=== PATIENT | female | born 1935 | race Caucasian/White ===

== ENCOUNTER 2016-10-28 12:46 | Outpatient (CLI) | payer MEDICARE, OTHER ==
[~2016-10-28 12:46] MED LIST: ACIPHEX20 MG PO; ACULAR 5 ML5 ML OD; ADVIL 200MG TA200 MG PO; ADVIL200 MG PO; AMOXICILLIN 50500 MG PO; AMOXICILLIN/CLA1 TA1 PO; AMOXICILLIN875 MG PO; ANTI-DIARRHEAL2 MG PO; APRESOLINE 25MG25 MG PO; ARAVA 20MG TABL20 MG PO; ARAVA10 MG PO; ARAVA20 MG PO; ASPIR-LOW81 MG PO; ASPIRIN 32325 MG/TA1 PO; ASPIRIN 32325 MG/TAB PO; ASPIRIN 81M81 MG/TA2 PO; ASTELIN INH; ASTELIN NASAL S34 ML NS; ASTELIN137 MCG/AC NS; AZULFIDINE PO; BACTRIM 400 MG-1 TAB PO; BRILINTA90 MG PO; BYSTOLIC10 MG PO; CALCIUM 600 W/V1 TAB PO; CALCIUM 6001 TAB PO; CALCIUM 600MG+D1 TAB PO; CALCIUM CARB W/1 TA1 PO; CALCIUM CARBONATE PO; CALMOSEPTINE1 OIN TP; CALTRATE 600600 MG PO; CALTRATE-600 W600 MG PO; CARAFATE 1GM1 G PO; CATAPRES 0.1MG0.1 MG PO; CECLOR 250MG250 MG PO; CEFACLOR250 MG PO; CEFPODOXIME PR100 MG PO; CEFTIN 250250 MG/TAB PO; CHOLECALCIFEROL PO; CIPRO 500MG TA500 MG PO; CLOTRIMAZOLE TR10 MG MM; CRANBERRY 4200 MG PO; CRANBERRY CONCE PO; CRANBERRY1 CAP PO; CRANBERRY450 MG PO; CYMBALTA 30MG30 MG PO; DARVOCET N; DARVOCET N 101 UDTAB PO; DIGOXIN0.25 MG PO; DIOVAN HCT PO; DIOVAN40 MG PO; DULCOLAX TAB5 MG PO; FISH OIL CONC1000 MG PO; FLAGYL 250250 MG/TAB PO; FLAGYL500 MG PO; FLONASE NASAL S16 GM NS; FLONASE0.05 MG/AC NS; FLOVENT DI50 MCG/Act IH; FLOXIN 5 ML5 ML OD; FOLIC ACID; FOLIC ACID 11 MG/TA1 PO; FOLIC ACID 40400 MCG PO; FOLIC ACID1 MG PO; IMDUR 30MG30 MG/TAB PO; IMDUR 60MG60 MG/TAB PO; ISMO 20MG20 MG; ISMO 20MG20 MG PO; ISORDIL 20MG20 M1 PO; ISOSORBIDE MONO20 MG PO; JANUVIA 100MG100 MG PO; JUNEL 1.5/30 301 TAB; K-DUR 2020 MEQ PO; KRILL OIL 300 MG PO; LASIX 40MG TABL40 MG PO; LASIX 80MG TABL80 MG PO; LASIX40 MG PO; LEVAQUIN 2250 MG/TAB PO; LEVAQUIN 5500 MG/TA1; LEVAQUIN 5500 MG/TA1 PO; LEVAQUIN 750MG750 M1 PO; LEVAQUIN 750MG750 MG PO; LIPITOR 80MG80 MG PO; LIPITOR40 MG PO; LIPITOR80 MG PO; MAALOX ADVANCE148 ML PO; MAALOX1 TAB PO; MELATONIN5 M1 PO; MELATONIN5 M1 SL; MELATONIN5 M2 PO; MELATONIN5 MG PO; METHOTREXA2.5 MG/TAB IM; METHOTREXA2.5 MG/TAB PO; METHOTREXA50 MG/2 ML SC; METHOTREXATE SO20 MG SQ; METHOTREXATE SODIUM SQ; METHOTREXATE25 MG/M1 SQ; METRONIDAZOLE500 MG PO; MONOKET10 MG PO; MONOKET20 MG PO; MUCINEX 60600 MG/TA1 PO; MUCINEX 60600 MG/TAB PO; MUCINEX D1 TER PO; MUCINEX DM 30 M1 TER PO; MULTI VITAMINS1 TAB PO; MULTIVITAMIN FO1 CAP PO; MYBETRIQ PO; MYRBETR25MG PO; MYRBETR50MG PO; Methotrexate IM; NEXIUM 40MG40 MG PO; NITROSTAT0.4 MG/TAB SL; NORMODYNE200 MG PO; NORMODYNE300 MG PO; NORVASC 10MG10 MG PO; OTREXUP 1212.5 MG/0. SQ; OTREXUP10 MG/0.4 IJ; PERCOCET 325 MG1 TA2 PO; PLAVIX 75MG TAB75 MG PO; PRED FORTE 1 ML1 ML OU; PREDNISONE 5MG5 MG PO; PREDNISONE20 MG PO; PRINIVIL20 MG PO; PRINIVIL40 MG PO; PROAIR HFA0.09 MG/AC IH; PROBIOTIC PO; PROLOPRIM100 MG PO; PROPOXYPHENE1 UDTAB PO; RANEXA1000 MG PO; RITE AID KRILL500 MG; RITE AID KRILL500 MG SL; RYBIX ODT50 MG PO; SINGULAIR 110 MG/TAB PO; SINGULAIR10 MG PO; ST. JOSEPH81 M2 PO; STOOL SOFTENER100 M2 PO; TESSALON PERLE200 MG PO; TOPROL XL50 MG PO; TRANDATE300 MG PO; TRILIPIX 135MG PO; TRIMPEX100 MG PO; TYLENOL 500MG500 MG PO; TYLENOL EXTRA500 M1 PO; ULTRAM 50MG TAB50 MG PO; ULTRAM ER100 MG PO; VENTOLIN0.09 MG IH; VOLTAREN GEL 1%1 TU TP; ZANTAC 150MG T150 MG PO; ZESTRIL 20MG TA20 MG PO; ZESTRIL40 MG PO; ZOFRAN 4MG T4 MG/TAB PO; ZOFRAN ODT4 MG PO; [UNRECOGNIZED DRUG - OTHER] PO; [UNRECOGNIZED DRUG - OTHER] PO; [UNRECOGNIZED DRUG - OTHER] PO; [UNRECOGNIZED DRUG - OTHER] PO; [UNRECOGNIZED DRUG - OTHER] PO; [UNRECOGNIZED DRUG - REMARK]
[2016-10-28 13:10] VITALS: BP 98/69; PULSE 92; TEMP 98.2
[2016-10-28 13:14] LABS: BASO # 0.1 (0.0-0.2); BASO % 0.5 % (0.0-2.0); EOS # 0.1 (0.0-0.7); EOS % 0.7 % (0-4.0); GRAN # 9.7 (1.4-6.5); GRAN % 79.9 % (42.2-75.2); HEMATOCRIT 39.1 % (37.0-47.0); HEMOGLOBIN 13.2 g/dl (12.5-16.0); LYMPH # 1.1 (1.2-3.4); LYMPH % 8.8 % (20.0-51.0); MEAN CELL VOLUME 88 fl (80.0-100.0); MEAN CORPUSCULAR HEMOGLOBIN 30 pg (27.0-31.0); MEAN CORPUSCULAR HGB CONC 34 g/dl (33.0-37.0); MEAN PLATELET VOLUME 9.9 fl (7.4-10.4); MONO # 1.1 (0.1-0.6); MONO % 9.1 % (1.7-9.3); PLATELET COUNT 227 K/mm3 (130-400); RED BLOOD COUNT 4.46 M/mm3 (4.10-5.30); REDCELL DISTRIBUTION WIDTH-CV 14.4 % (11.5-14.5); WHITE BLOOD COUNT 12.1 K/mm3 (4.8-10.8)
[2016-10-28 13:37] LABS: ADJUSTED CALCIUM 9.7 mg/dL (8.4-10.2); CALCIUM 9.7 mg/dL (8.4-10.2); CREATININE, serum 1.34 mg/dL (0.52-1.25); POTASSIUM 3.9 mmol/L (3.4-5.0); TOTAL PROTEIN 6.8 gm/dL (6.4-8.2)
[2016-10-28] MEDS ORDERED: TYLENOL 500MG500 MG PO (14:46)
[2016-10-28] MEDS ORDERED: FLONASEALLERGY NS (14:48)
[2016-10-28] MEDS ORDERED: TUMS500 MG PO (14:48)
[2016-10-28] MEDS ORDERED: FOLIC ACID 11 MG/TA1 PO (14:49)
[2016-10-28] MEDS ORDERED: MELATONIN5 M1 SL (14:52)
[2016-10-28] MEDS ORDERED: FLAGYL500 MG PO (14:52)
[2016-10-28] MEDS ORDERED: NITROSTAT0.4 MG/TAB SL (14:54)
[2016-10-28 15:54] VITALS: BP 124/67; PULSE 61; TEMP 97.5
[2016-10-28 16:35] LABS: PH 5 (5-8); SQUAMOUS EPITHELIAL 0-2 /hpf; URINE APPEARANCE Hazy; URINE BACTERIA Rare /hpf; URINE BILIRUBIN Negative (NEGATIVE); URINE BLOOD Negative (NEGATIVE); URINE COLOR Yellow; URINE GLUCOSE Negative (NEGATIVE); URINE KETONE Negative (NEGATIVE); URINE RBC 0-2 /hpf; URINE UROBILINOGEN Negative (NEGATIVE)
[2017-06-05] MEDS ORDERED: ZYRTEC5 MG PO (10:34)
[2017-06-05] MEDS ORDERED: LASIX 40MG TABL40 MG PO (10:35)
[2017-06-05] MEDS ORDERED: APRESOLINE 25MG25 MG PO (10:36)
[2017-06-05] MEDS ORDERED: PRINIVIL40 MG PO (10:39)
[2017-06-05] MEDS ORDERED: MYRBETR50MG PO (10:42)
[2017-06-05] MEDS ORDERED: ULTRAM ER100 MG PO (11:01)
[2017-06-05] MEDS ORDERED: ULTRAM 50MG TAB50 MG PO (11:01)
== END 2016-10-28 16:58 | disposition home or self-care (01) ==
LOC: EUO 12:46
PROVIDERS: Internal Medicine
DX: E86.0 Dehydration (principal); Z45.2 Encounter for adjustment and management of vascular access device
CPT/HCPCS: J1644; J2405; J3480; J7040

== ENCOUNTER 2016-11-02 14:23 | Emergency (ER) | payer MEDICARE, OTHER ==
[~2016-11-02] VITALS: Ht 154.9 cm; Wt 84.1 kg
[~2016-11-02 14:23] MED LIST changes: +FLONASEALLERGY NS; +TUMS500 MG PO
[2016-11-02 14:43] VITALS: TEMP 97.3
[2016-11-02 15:51] LABS: ADJUSTED CALCIUM 9.8 mg/dL (8.4-10.2); ALBUMIN 3.2 gm/dL (3.5-5.0); BASO # 0.1 (0.0-0.2); BASO % 0.8 % (0.0-2.0); BILIRUBIN,TOTAL 0.7 mg/dL (0.0-1.0); CALCIUM 9.2 mg/dL (8.4-10.2); CREATININE, serum 0.81 mg/dL (0.52-1.25); EOS # 0.1 (0.0-0.7); EOS % 1.4 % (0-4.0); GRAN # 7.3 (1.4-6.5); LYMPH # 0.8 (1.2-3.4); LYMPH % 8.8 % (20.0-51.0); MEAN CELL VOLUME 89 fl (80.0-100.0); MEAN CORPUSCULAR HEMOGLOBIN 30 pg (27.0-31.0); MEAN CORPUSCULAR HGB CONC 34 g/dl (33.0-37.0); MEAN PLATELET VOLUME 10.5 fl (7.4-10.4); MONO # 0.6 (0.1-0.6); MONO % 6.2 % (1.7-9.3); PLATELET COUNT 138 K/mm3 (130-400); POTASSIUM 4.3 mmol/L (3.4-5.0); REDCELL DISTRIBUTION WIDTH-CV 14.5 % (11.5-14.5); WHITE BLOOD COUNT 8.9 K/mm3 (4.8-10.8)
[2016-11-02 15:53] LABS: HEMATOCRIT 35.4 % (37.0-47.0)
[2016-11-02 17:14] LABS: INR 1.3 (0.8-3.0); PROTHROMBIN TIME 14.4 SECONDS (9.7-12.8)
[2016-11-02 17:29] LABS: PH 5 (5-8); SQUAMOUS EPITHELIAL 0-2 /hpf; URINE APPEARANCE Clear; URINE BACTERIA None Seen /hpf; URINE BILIRUBIN Negative (NEGATIVE); URINE BLOOD Negative (NEGATIVE); URINE COLOR Amber; URINE GLUCOSE Negative (NEGATIVE); URINE KETONE Negative (NEGATIVE); URINE RBC 0-2 /hpf; URINE UROBILINOGEN Negative (NEGATIVE)
[2016-11-02 17:31] LABS: TROPONIN-I 0.013 ng/mL (0.000-0.034)
[2016-11-02] MEDS ORDERED: ANTIVERT 12.512.5 MG PO (20:16)
[2016-11-02] MEDS ORDERED: LASIX 20MG TABL20 MG PO (20:16)
[2016-11-02 20:29] VITALS: BP 162/89; PULSE 60
[2017-06-05] MEDS ORDERED: ZYRTEC5 MG PO (10:34)
[2017-06-05] MEDS ORDERED: LASIX 40MG TABL40 MG PO (10:35)
[2017-06-05] MEDS ORDERED: APRESOLINE 25MG25 MG PO (10:36)
[2017-06-05] MEDS ORDERED: PRINIVIL40 MG PO (10:39)
[2017-06-05] MEDS ORDERED: MYRBETR50MG PO (10:42)
[2017-06-05] MEDS ORDERED: ULTRAM ER100 MG PO (11:01)
[2017-06-05] MEDS ORDERED: ULTRAM 50MG TAB50 MG PO (11:01)
== END 2016-11-02 21:02 | disposition home or self-care (01) ==
LOC: COL.ER 14:23
PROVIDERS: Emergency Medicine
DX: H81.10 Benign paroxysmal vertigo, unspecified ear (principal); I11.0 Hypertensive heart disease with heart failure; I50.9 Heart failure, unspecified; I48.91 Unspecified atrial fibrillation; Z95.5 Presence of coronary angioplasty implant and graft
CPT/HCPCS: J1940; J7030

== ENCOUNTER → 2016-11-24 | Outpatient (CLI) | payer MEDICARE, OTHER ==
[~2016-11-24] MED LIST changes: +ANTIVERT 12.512.5 MG PO; +APRESOLINE50 MG PO; +AUGMENTIN 250 M1 TAB PO; +COLACE 100100 MG/CAP PO; +CRANBERRY 100 M1 SGL PO; +ISORDIL TITRADO40 MG PO; +KRILL OIL 3001 EACH PO; +LASIX 20MG TABL20 MG PO; +MULTIPLE VITAMI1 CAP PO; +OSCAL 500 TAB500 MG PO; +PRENATAL MVI PO; +PROBIOTIC FORMU1 CAP PO; +PROCARDIA XL 6060 MG PO; +RANEXA 500MG T500 MG PO; +ZYRTEC5 MG PO
== END ==
LOC: SUN.DIA 10-28 09:52
DX: E11.40 Type 2 diabetes mellitus with diabetic neuropathy, unspecified (principal); E11.65 Type 2 diabetes mellitus with hyperglycemia; E78.5 Hyperlipidemia, unspecified; I10 Essential (primary) hypertension

== ENCOUNTER 2016-12-03 17:25 | Emergency (ER) | payer MEDICARE, OTHER ==
[~2016-12-03] VITALS: Ht 154.9 cm; Wt 86.4 kg
[~2016-12-03 17:25] MED LIST changes: -APRESOLINE50 MG PO; -AUGMENTIN 250 M1 TAB PO; -COLACE 100100 MG/CAP PO; -CRANBERRY 100 M1 SGL PO; -ISORDIL TITRADO40 MG PO; -KRILL OIL 3001 EACH PO; -MULTIPLE VITAMI1 CAP PO; -OSCAL 500 TAB500 MG PO; -PRENATAL MVI PO; -PROBIOTIC FORMU1 CAP PO; -PROCARDIA XL 6060 MG PO; -RANEXA 500MG T500 MG PO; -ZYRTEC5 MG PO
[2016-12-03 17:26] VITALS: TEMP 97.4
[2016-12-03 19:49] LABS: BASO # 0.1 (0.0-0.2); BASO % 0.7 % (0.0-2.0); GRAN # 8.8 (1.4-6.5); GRAN % 90.1 % (42.2-75.2); HEMATOCRIT 38.3 % (37.0-47.0); LYMPH # 0.7 (1.2-3.4); LYMPH % 6.9 % (20.0-51.0); MEAN CELL VOLUME 87 fl (80.0-100.0); MEAN CORPUSCULAR HEMOGLOBIN 29 pg (27.0-31.0); MEAN CORPUSCULAR HGB CONC 34 g/dl (33.0-37.0); MEAN PLATELET VOLUME 9.6 fl (7.4-10.4); MONO # 0.2 (0.1-0.6); MONO % 1.9 % (1.7-9.3); PLATELET COUNT 201 K/mm3 (130-400); RED BLOOD COUNT 4.42 M/mm3 (4.10-5.30); REDCELL DISTRIBUTION WIDTH-CV 14.4 % (11.5-14.5); WHITE BLOOD COUNT 9.7 K/mm3 (4.8-10.8)
[2016-12-03 19:58] LABS: ADJUSTED CALCIUM 9.8 mg/dL (8.4-10.2); ALBUMIN 4.1 gm/dL (3.5-5.0); BILIRUBIN,TOTAL 1.2 mg/dL (0.0-1.0); CALCIUM 9.9 mg/dL (8.4-10.2); CREATININE, serum 0.62 mg/dL (0.52-1.25); POTASSIUM 4.2 mmol/L (3.4-5.0); TOTAL PROTEIN 7.3 gm/dL (6.4-8.2)
[2016-12-03] MEDS ORDERED: PROAIR HFA0.09 MG/AC IH (20:49)
[2016-12-03] MEDS ORDERED: ASPIRIN 81M81 MG/TA2 PO (20:49)
[2016-12-03] MEDS ORDERED: FLONASEALLERGY NS (20:51)
[2016-12-03] MEDS ORDERED: OSCAL 500 TAB500 MG PO (20:51)
[2016-12-03] MEDS ORDERED: LIPITOR 80MG80 MG PO (20:51)
[2016-12-03] MEDS ORDERED: FOLIC ACID 11 MG/TA1 PO (20:52)
[2016-12-03] MEDS ORDERED: LASIX 40MG TABL40 MG PO (20:52)
[2016-12-03] MEDS ORDERED: APRESOLINE 25MG25 MG PO (20:53)
[2016-12-03] MEDS ORDERED: ISORDIL TITRADO40 MG PO (20:54)
[2016-12-03] MEDS ORDERED: KRILL OIL 3001 EACH PO (20:54)
[2016-12-03] MEDS ORDERED: PRINIVIL40 MG PO (20:54)
[2016-12-03] MEDS ORDERED: ANTIVERT 12.512.5 MG PO (20:55)
[2016-12-03] MEDS ORDERED: MELATONIN5 M1 SL (21:08)
[2016-12-03] MEDS ORDERED: FLAGYL500 MG PO ×2 (21:08→22:11)
[2016-12-03] MEDS ORDERED: MYRBETR25MG PO (21:09)
[2016-12-03] MEDS ORDERED: ZOFRAN 4MG T4 MG/TAB PO (21:09)
[2016-12-03] MEDS ORDERED: SINGULAIR 110 MG/TAB PO (21:09)
[2016-12-03] MEDS ORDERED: ACIPHEX20 MG PO (21:09)
[2016-12-03] MEDS ORDERED: RANEXA 500MG T500 MG PO (21:10)
[2016-12-03] MEDS ORDERED: BRILINTA90 MG PO (21:10)
[2016-12-03] MEDS ORDERED: ULTRAM 50MG TAB50 MG PO (21:11)
[2016-12-03] MEDS ORDERED: ULTRAM ER100 MG PO (21:11)
[2016-12-03 21:12] LABS: PH 7 (5-8); URINE APPEARANCE Hazy; URINE BACTERIA Rare /hpf; URINE BILIRUBIN Negative (NEGATIVE); URINE BLOOD Negative (NEGATIVE); URINE COLOR Yellow; URINE GLUCOSE 1+ (NEGATIVE); URINE KETONE Trace (NEGATIVE); URINE RBC 0-2 /hpf; URINE UROBILINOGEN Negative (NEGATIVE)
[2016-12-03] MEDS ORDERED: CIPRO 500MG TA500 MG PO (22:11)
[2016-12-03 23:04] VITALS: BP 154/114; PULSE 100
[2017-06-05] MEDS ORDERED: ZYRTEC5 MG PO (10:34)
[2017-06-05] MEDS ORDERED: LASIX 40MG TABL40 MG PO (10:35)
[2017-06-05] MEDS ORDERED: APRESOLINE 25MG25 MG PO (10:36)
[2017-06-05] MEDS ORDERED: PRINIVIL40 MG PO (10:39)
[2017-06-05] MEDS ORDERED: MYRBETR50MG PO (10:42)
[2017-06-05] MEDS ORDERED: ULTRAM 50MG TAB50 MG PO (11:01)
[2017-06-05] MEDS ORDERED: ULTRAM ER100 MG PO (11:01)
== END 2016-12-03 23:06 | disposition home or self-care (01) ==
LOC: COL.ER 17:25
PROVIDERS: Emergency Medicine
DX: R10.32 Left lower quadrant pain (principal); Z87.19 Personal history of other diseases of the digestive system
CPT/HCPCS: J2405; J3010; J7030

== ENCOUNTER 2017-01-25 10:13 | Inpatient (IN) | payer MEDICARE, OTHER ==
[~2017-01-25] VITALS: Ht 154.9 cm; Wt 88.7 kg
[~2017-01-25 10:13] MED LIST changes: +ISORDIL TITRADO40 MG PO; +KRILL OIL 3001 EACH PO; +OSCAL 500 TAB500 MG PO; +RANEXA 500MG T500 MG PO
[2017-01-25 11:01] LABS: HEMOGLOBIN 12.7 g/dl (12.5-16.0); MEAN CELL VOLUME 85 fl (80.0-100.0); MEAN CORPUSCULAR HEMOGLOBIN 30 pg (27.0-31.0); MEAN CORPUSCULAR HGB CONC 35 g/dl (33.0-37.0); MEAN PLATELET VOLUME 10.6 fl (7.4-10.4); PLATELET COUNT 144 K/mm3 (130-400); RED BLOOD COUNT 4.25 M/mm3 (4.10-5.30); WHITE BLOOD COUNT 11.7 K/mm3 (4.8-10.8)
[2017-01-25 11:03] LABS: ADD PATHOLOGY DIFF REVIEW NO
[2017-01-25 11:11] LABS: ADJUSTED CALCIUM 9.6 mg/dL (8.4-10.2); ALBUMIN 3.5 gm/dL (3.5-5.0); CALCIUM 9.2 mg/dL (8.4-10.2); POTASSIUM 5.1 mmol/L (3.4-5.0); TOTAL PROTEIN 5.6 gm/dL (6.4-8.2)
[2017-01-25 11:13] LABS: CREATININE, serum 4.28 mg/dL (0.52-1.25)
[2017-01-25 11:14] LABS: PH 5 (5-8); SQUAMOUS EPITHELIAL 0-2 /hpf; URINE APPEARANCE Clear; URINE BACTERIA None Seen /hpf; URINE BILIRUBIN Negative (NEGATIVE); URINE BLOOD Negative (NEGATIVE); URINE COLOR Yellow; URINE GLUCOSE 1+ (NEGATIVE); URINE KETONE Negative (NEGATIVE); URINE RBC 0-2 /hpf; URINE UROBILINOGEN Negative (NEGATIVE); URINE WBC 0-2 /hpf
[2017-01-25 11:25] LABS: BAND 6 % (0-10); NEUTROPHILS 86 % (42.0-75.2); TOTAL CELLS COUNTED 100
[2017-01-25 11:26] LABS: ANISOCYTOSIS 1+; PLATELET ESTIMATE NORMAL (NORMAL)
[2017-01-25] MEDS ORDERED: BYSTOLIC10 MG PO (11:50)
[2017-01-25] MEDS ORDERED: APRESOLINE 25MG25 MG PO (11:51)
[2017-01-25 13:44] VITALS: BP 152/88; PULSE 55; TEMP 99.1
[2017-01-25] MEDS ORDERED: CRANBERRY 100 M1 SGL PO (14:42)
[2017-01-25] MEDS ORDERED: MULTIPLE VITAMI1 CAP PO (14:43)
[2017-01-25] MEDS ORDERED: PROBIOTIC FORMU1 CAP PO (14:47)
[2017-01-25] MEDS ORDERED: ZOFRAN ODT4 MG PO (14:51)
[2017-01-25 16:11] VITALS: BP 143/79; PULSE 75; TEMP 97.5
[2017-01-25 19:25] VITALS: BP 183/104; PULSE 55; TEMP 97.7
[2017-01-25 20:18] VITALS: BP 156/82; PULSE 58
[2017-01-25 23:15] VITALS: BP 182/94; PULSE 61; TEMP 98.2
[2017-01-26 03:08] VITALS: BP 182/94; PULSE 58; TEMP 97.9
[2017-01-26 04:06] VITALS: BP 136/67; PULSE 60
[2017-01-26 07:20] VITALS: BP 123/61; PULSE 58; TEMP 96.8
[2017-01-26 07:20] LABS: ADJUSTED CALCIUM 9.4 mg/dL (8.4-10.2); ALBUMIN 3.1 gm/dL (3.5-5.0); BILIRUBIN,TOTAL 0.9 mg/dL (0.0-1.0); CALCIUM 8.7 mg/dL (8.4-10.2); CREATININE, serum 3.81 mg/dL (0.52-1.25); TOTAL PROTEIN 5.4 gm/dL (6.4-8.2)
[2017-01-26 07:41] LABS: MEAN CELL VOLUME 87 fl (80.0-100.0); MEAN CORPUSCULAR HEMOGLOBIN 30 pg (27.0-31.0); MEAN CORPUSCULAR HGB CONC 35 g/dl (33.0-37.0); MEAN PLATELET VOLUME 10.9 fl (7.4-10.4); PLATELET COUNT 117 K/mm3 (130-400); RED BLOOD COUNT 3.99 M/mm3 (4.10-5.30); REDCELL DISTRIBUTION WIDTH-CV 15.3 % (11.5-14.5); WHITE BLOOD COUNT 9.8 K/mm3 (4.8-10.8)
[2017-01-26 07:44] LABS: THYROID STIMULATING HORMONE 0.429 uIU/mL (0.465-4.680)
[2017-01-26 07:59] LABS: HEMATOCRIT 34.7 % (37.0-47.0)
[2017-01-26 11:39] VITALS: BP 146/77; PULSE 61; TEMP 97.8
[2017-01-26 15:31] VITALS: BP 158/84; PULSE 59; TEMP 98
[2017-01-26 19:42] VITALS: BP 145/69; PULSE 60; TEMP 98.2
[2017-01-27] VITALS (7 sets, daily range): BP systolic 134–185; BP diastolic 75–94; PULSE 58–70; TEMP 97.6–98.7
[2017-01-27 03:52] LABS: PH 5 (5-8); SQUAMOUS EPITHELIAL 0-2 /hpf; URINE APPEARANCE Clear; URINE BACTERIA None Seen /hpf; URINE BILIRUBIN Negative (NEGATIVE); URINE BLOOD Negative (NEGATIVE); URINE COLOR Yellow; URINE GLUCOSE Negative (NEGATIVE); URINE KETONE Negative (NEGATIVE); URINE RBC 0-2 /hpf; URINE UROBILINOGEN Negative (NEGATIVE)
[2017-01-27 08:01] LABS: C-REACTIVE PROTEIN 0.7 mg/dL (0.0-0.9); CALCIUM 8.4 mg/dL (8.4-10.2); CREATININE, serum 3.13 mg/dL (0.52-1.25); POTASSIUM 4.2 mmol/L (3.4-5.0)
[2017-01-28] VITALS (7 sets, daily range): BP systolic 134–189; BP diastolic 71–94; PULSE 58–64; TEMP 97.1–97.8
[2017-01-28 07:42] LABS: ADJUSTED CALCIUM 9.6 mg/dL (8.4-10.2); ALBUMIN 3.2 gm/dL (3.5-5.0); BILIRUBIN,TOTAL 0.9 mg/dL (0.0-1.0); CREATININE, serum 2.67 mg/dL (0.52-1.25); POTASSIUM 4.5 mmol/L (3.4-5.0); TOTAL PROTEIN 5.6 gm/dL (6.4-8.2)
[2017-01-29] VITALS (7 sets, daily range): BP systolic 150–205; BP diastolic 66–96; PULSE 58–80; TEMP 97.4–98.7
[2017-01-30] VITALS (7 sets, daily range): BP systolic 144–181; BP diastolic 58–93; PULSE 57–65; TEMP 96.6–98.1
[2017-01-30 07:22] LABS: CALCIUM 9.2 mg/dL (8.4-10.2); CREATININE, serum 1.93 mg/dL (0.52-1.25); MAGNESIUM 1.2 mg/dL (1.6-2.3); POTASSIUM 4.1 mmol/L (3.4-5.0)
[2017-01-31 02:27] VITALS: BP 133/61; PULSE 55; TEMP 98.4
[2017-01-31 08:35] VITALS: BP 189/96; PULSE 63; TEMP 97.6
[2017-01-31 08:48] LABS: CALCIUM 9.1 mg/dL (8.4-10.2); CREATININE, serum 1.8 mg/dL (0.52-1.25); POTASSIUM 4.2 mmol/L (3.4-5.0)
[2017-01-31 12:15] VITALS: BP 150/74; PULSE 63; TEMP 97.8
[2017-01-31 13:20] LABS: PH 5 (5-8); URINE APPEARANCE Clear; URINE BACTERIA Rare /hpf; URINE BILIRUBIN Negative (NEGATIVE); URINE BLOOD Negative (NEGATIVE); URINE COLOR Yellow; URINE GLUCOSE Negative (NEGATIVE); URINE KETONE Negative (NEGATIVE); URINE UROBILINOGEN Negative (NEGATIVE)
[2017-01-31 16:53] VITALS: BP 149/76; PULSE 58; TEMP 97.5
[2017-01-31 22:46] VITALS: BP 141/65; PULSE 57; TEMP 98.4
[2017-02-01 04:48] VITALS: BP 160/70; PULSE 57; TEMP 98.2
[2017-02-01 07:44] VITALS: BP 189/89; PULSE 59; TEMP 96.7
[2017-02-01] MEDS ORDERED: APRESOLINE50 MG PO (07:55)
[2017-02-01] MEDS ORDERED: ULTRAM 50MG TAB50 MG PO (07:59)
[2017-02-01] MEDS ORDERED: ULTRAM ER100 MG PO (07:59)
[2017-02-01] MEDS ORDERED: LASIX 20MG TABL20 MG PO (09:23)
[2017-02-01] MEDS ORDERED: PROCARDIA XL 6060 MG PO (09:35)
[2017-02-01 10:53] VITALS: BP 189/89; PULSE 59; TEMP 96.7
[2017-02-01 11:41] VITALS: BP 178/76; PULSE 57; TEMP 97.8
[2017-06-05] MEDS ORDERED: ZYRTEC5 MG PO (10:34)
[2017-06-05] MEDS ORDERED: LASIX 40MG TABL40 MG PO (10:35)
[2017-06-05] MEDS ORDERED: APRESOLINE 25MG25 MG PO (10:36)
[2017-06-05] MEDS ORDERED: PRINIVIL40 MG PO (10:39)
[2017-06-05] MEDS ORDERED: MYRBETR50MG PO (10:42)
[2017-06-05] MEDS ORDERED: ULTRAM ER100 MG PO (11:01)
[2017-06-05] MEDS ORDERED: ULTRAM 50MG TAB50 MG PO (11:01)
== END 2017-02-01 14:30 | DRG 683 ==
LOC: COL.ER 10:13 → MEDICAL 12:04
PROVIDERS: Emergency Medicine; Internal Medicine
DX: N17.9 Acute kidney failure, unspecified (principal); K57.32 Diverticulitis of large intestine without perforation or abscess without bleeding; E44.0 Moderate protein-calorie malnutrition; E86.0 Dehydration; I10 Essential (primary) hypertension; E11.9 Type 2 diabetes mellitus without complications; N39.41 Urge incontinence; R35.0 Frequency of micturition; I25.10 Atherosclerotic heart disease of native coronary artery without angina pectoris; Z95.5 Presence of coronary angioplasty implant and graft
CPT/HCPCS: 99223-AI; 99232-AI; 99233-AI; 99239; J0360; J1644; J1650; J1815; J2405; J3475; J7030

== ENCOUNTER → 2017-02-04 | Outpatient (CLI) | payer OTHER, MEDICARE ==
[~2017-02-04] MED LIST changes: +APRESOLINE50 MG PO; +AUGMENTIN 250 M1 TAB PO; +COLACE 100100 MG/CAP PO; +CRANBERRY 100 M1 SGL PO; +MULTIPLE VITAMI1 CAP PO; +PRENATAL MVI PO; +PROBIOTIC FORMU1 CAP PO; +PROCARDIA XL 6060 MG PO; +ZYRTEC5 MG PO
[2017-02-04 13:35] LABS: CREATININE, serum 1.77 mg/dL (0.52-1.25); POTASSIUM 4.2 mmol/L (3.4-5.0)
[2017-02-04 14:33] LABS: MEAN CELL VOLUME 88 fl (80.0-100.0); MEAN CORPUSCULAR HGB CONC 34 g/dl (33.0-37.0); MEAN PLATELET VOLUME 10.5 fl (7.4-10.4); PLATELET COUNT 153 K/mm3 (130-400); RED BLOOD COUNT 4.02 M/mm3 (4.10-5.30); REDCELL DISTRIBUTION WIDTH-CV 15.8 % (11.5-14.5); WHITE BLOOD COUNT 8.3 K/mm3 (4.8-10.8)
[2017-02-04 14:34] LABS: HEMATOCRIT 35.2 % (37.0-47.0); HEMOGLOBIN 11.8 g/dl (12.5-16.0); MEAN CORPUSCULAR HEMOGLOBIN 29 pg (27.0-31.0)
== END ==
LOC: ZLAB.STJ 10:28
PROVIDERS: Internal Medicine
DX: N17.8 Other acute kidney failure (principal); Z02.89 Encounter for other administrative examinations

== ENCOUNTER 2017-06-18 09:00 | Outpatient (RCR) | payer MEDICARE, OTHER ==
[2017-06-05 10:13] VITALS: BP 160/68; PULSE 57; TEMP 98.2
[2017-06-06 09:29] VITALS: BP 133/84; PULSE 64; TEMP 98
[2017-06-07 09:04] VITALS: BP 158/84; PULSE 88; TEMP 98
[2017-06-08 09:32] VITALS: BP 118/65; PULSE 63; TEMP 98.9
[2017-06-09 11:55] VITALS: BP 154/92; PULSE 85; TEMP 98.5
[2017-06-10 09:24] VITALS: BP 89/55; PULSE 64; TEMP 98
[2017-06-11 09:22] VITALS: BP 140/72; PULSE 64; TEMP 98.3
[2017-06-11 10:16] LABS: THYROID STIMULATING HORMONE 1.2 uIU/mL (0.465-4.680)
[2017-06-12 08:26] VITALS: BP 102/55; PULSE 73; TEMP 97.9
[2017-06-13 08:22] VITALS: BP 186/89; PULSE 63; TEMP 98.1
[2017-06-14 10:00] VITALS: BP 130/60; PULSE 56; TEMP 98.3
[2017-06-15 09:07] VITALS: BP 127/68; PULSE 64; TEMP 98.5
[2017-06-16 08:50] VITALS: BP 128/63; PULSE 58; TEMP 98.5
[2017-06-17 09:10] VITALS: BP 129/71; PULSE 58; TEMP 98.7
[~2017-06-18] VITALS: Ht 154.9 cm; Wt 90.9 kg
[~2017-06-18 09:00] MED LIST changes: -AUGMENTIN 250 M1 TAB PO; -COLACE 100100 MG/CAP PO; -PRENATAL MVI PO
[2017-06-18 09:40] VITALS: BP 150/74; PULSE 57; TEMP 98.3
== END 2017-06-18 10:39 | disposition home or self-care (01) ==
LOC: EUO 09:00
PROVIDERS: Internal Medicine
DX: N39.0 Urinary tract infection, site not specified (principal); Z79.899 Other long term (current) drug therapy
CPT/HCPCS: J1335; J1644

== ENCOUNTER 2017-07-11 19:47 | Inpatient (IN) | payer MEDICARE, OTHER ==
[~2017-07-11] VITALS: Ht 154.9 cm; Wt 92.5 kg
[2017-07-11 20:53] LABS: BASO # 0.1 (0.0-0.2); BASO % 0.3 % (0.0-2.0); GRAN # 12.9 (1.4-6.5); GRAN % 88.8 % (42.2-75.2); HEMATOCRIT 36.7 % (37.0-47.0); HEMOGLOBIN 12.4 g/dl (12.5-16.0); LYMPH # 0.7 (1.2-3.4); LYMPH % 4.8 % (20.0-51.0); MEAN CELL VOLUME 89 fl (80.0-100.0); MEAN CORPUSCULAR HEMOGLOBIN 30 pg (27.0-31.0); MEAN CORPUSCULAR HGB CONC 34 g/dl (33.0-37.0); MEAN PLATELET VOLUME 9.9 fl (7.4-10.4); MONO # 0.8 (0.1-0.6); MONO % 5.6 % (1.7-9.3); PLATELET COUNT 155 K/mm3 (130-400); RED BLOOD COUNT 4.11 M/mm3 (4.10-5.30); WHITE BLOOD COUNT 14.5 K/mm3 (4.8-10.8)
[2017-07-11 21:02] LABS: ADJUSTED CALCIUM 9.4 mg/dL (8.4-10.2); ALBUMIN 3.4 gm/dL (3.5-5.0); CALCIUM 8.9 mg/dL (8.4-10.2); CREATININE, serum 0.68 mg/dL (0.52-1.25); POTASSIUM 4.1 mmol/L (3.4-5.0); TOTAL PROTEIN 6.1 gm/dL (6.4-8.2)
[2017-07-11 21:39] LABS: PH 5 (5-8); SQUAMOUS EPITHELIAL 0-2 /hpf; URINE APPEARANCE Clear; URINE BACTERIA Rare /hpf; URINE BILIRUBIN Negative (NEGATIVE); URINE BLOOD Negative (NEGATIVE); URINE COLOR Yellow; URINE GLUCOSE Negative (NEGATIVE); URINE KETONE Negative (NEGATIVE); URINE RBC 0-2 /hpf; URINE UROBILINOGEN Negative (NEGATIVE); URINE WBC 0-2 /hpf
[2017-07-11] MEDS ORDERED: VENTOLIN0.09 MG IH (23:18)
[2017-07-11] MEDS ORDERED: TYLENOL 500MG500 MG PO (23:18)
[2017-07-11] MEDS ORDERED: LIPITOR 80MG80 MG PO (23:19)
[2017-07-11] MEDS ORDERED: ASPIRIN 81M81 MG/TA2 PO (23:19)
[2017-07-11] MEDS ORDERED: BYSTOLIC10 MG PO (23:20)
[2017-07-11] MEDS ORDERED: TUMS500 MG PO (23:20)
[2017-07-11] MEDS ORDERED: ZYRTEC5 MG PO (23:20)
[2017-07-11] MEDS ORDERED: LASIX 40MG TABL40 MG PO (23:21)
[2017-07-11] MEDS ORDERED: FOLIC ACID 11 MG/TA1 PO (23:21)
[2017-07-11] MEDS ORDERED: COLACE 100100 MG/CAP PO (23:21)
[2017-07-11] MEDS ORDERED: ISORDIL TITRADO40 MG PO (23:22)
[2017-07-11] MEDS ORDERED: APRESOLINE 25MG25 MG PO (23:22)
[2017-07-11] MEDS ORDERED: KRILL OIL 3001 EACH PO (23:23)
[2017-07-11] MEDS ORDERED: PRINIVIL40 MG PO (23:23)
[2017-07-11] MEDS ORDERED: MELATONIN5 M1 PO (23:24)
[2017-07-11] MEDS ORDERED: SINGULAIR 110 MG/TAB PO (23:25)
[2017-07-11] MEDS ORDERED: MULTI VITAMINS1 TAB PO (23:26)
[2017-07-11] MEDS ORDERED: MYRBETR50MG PO (23:26)
[2017-07-11] MEDS ORDERED: ZOFRAN 4MG T4 MG/TAB PO (23:27)
[2017-07-11] MEDS ORDERED: PRENATAL MVI PO (23:27)
[2017-07-11] MEDS ORDERED: PROBIOTIC FORMU1 CAP PO (23:28)
[2017-07-11] MEDS ORDERED: ACIPHEX20 MG PO (23:29)
[2017-07-11] MEDS ORDERED: RANEXA 500MG T500 MG PO (23:30)
[2017-07-11] MEDS ORDERED: BRILINTA90 MG PO (23:31)
[2017-07-11] MEDS ORDERED: ULTRAM 50MG TAB50 MG PO (23:32)
[2017-07-11] MEDS ORDERED: ANTIVERT 12.512.5 MG PO (23:33)
[2017-07-11] MEDS ORDERED: CRANBERRY 100 M1 SGL PO (23:33)
[2017-07-11] MEDS ORDERED: FLONASE NASAL S16 GM NS (23:33)
[2017-07-11] MEDS ORDERED: NITROSTAT0.4 MG/TAB SL (23:34)
[2017-07-12 00:48] VITALS: BP 177/93; PULSE 72; TEMP 98
[2017-07-12] MEDS ORDERED: AUGMENTIN 250 M1 TAB PO (00:48)
[2017-07-12] MEDS ORDERED: ULTRAM ER100 MG PO (02:36)
[2017-07-12 04:44] VITALS: BP 152/85; PULSE 70; TEMP 97.8
[2017-07-12 07:35] VITALS: BP 138/70; PULSE 65; TEMP 97.9
[2017-07-12 12:50] VITALS: BP 109/62; PULSE 74; TEMP 97.8
[2017-07-12 16:37] VITALS: BP 137/66; PULSE 82; TEMP 98
[2017-07-12 19:41] VITALS: BP 120/64; PULSE 78; TEMP 98.5
[2017-07-13 00:06] VITALS: BP 137/67; PULSE 73; TEMP 98.4
[2017-07-13 03:46] VITALS: BP 139/65; PULSE 69; TEMP 98
[2017-07-13 07:24] VITALS: BP 147/73; PULSE 69; TEMP 98.3
[2017-07-13 07:33] LABS: BASO % 0.5 % (0.0-2.0); GRAN # 6.3 (1.4-6.5); GRAN % 84.9 % (42.2-75.2); LYMPH # 0.6 (1.2-3.4); LYMPH % 8.5 % (20.0-51.0); MEAN CELL VOLUME 90 fl (80.0-100.0); MEAN CORPUSCULAR HGB CONC 34 g/dl (33.0-37.0); MEAN PLATELET VOLUME 9.9 fl (7.4-10.4); MONO # 0.4 (0.1-0.6); MONO % 5.7 % (1.7-9.3); PLATELET COUNT 129 K/mm3 (130-400); RED BLOOD COUNT 3.22 M/mm3 (4.10-5.30); REDCELL DISTRIBUTION WIDTH-CV 14.6 % (11.5-14.5); WHITE BLOOD COUNT 7.4 K/mm3 (4.8-10.8)
[2017-07-13 07:38] LABS: HEMOGLOBIN 9.8 g/dl (12.5-16.0); MEAN CORPUSCULAR HEMOGLOBIN 30 pg (27.0-31.0)
[2017-07-13 07:52] LABS: CALCIUM 8.1 mg/dL (8.4-10.2); CREATININE, serum 0.71 mg/dL (0.52-1.25)
[2017-07-13 08:05] LABS: POTASSIUM 2.6 mmol/L (3.4-5.0)
[2017-07-13 11:23] VITALS: BP 115/59; PULSE 63; TEMP 97.9
[2017-07-13 16:12] VITALS: BP 135/66; PULSE 62; TEMP 98
[2017-07-13 20:34] VITALS: BP 120/60; PULSE 68
[2017-07-14 00:51] VITALS: BP 113/56; PULSE 61; TEMP 98.5
[2017-07-14 05:04] VITALS: BP 143/67; PULSE 61; TEMP 97.5
[2017-07-14 07:36] LABS: BASO % 0.6 % (0.0-2.0); EOS # 0.1 (0.0-0.7); EOS % 1.6 % (0-4.0); GRAN # 3.9 (1.4-6.5); GRAN % 76.6 % (42.2-75.2); LYMPH # 0.7 (1.2-3.4); LYMPH % 13.5 % (20.0-51.0); MEAN CELL VOLUME 92 fl (80.0-100.0); MEAN CORPUSCULAR HGB CONC 33 g/dl (33.0-37.0); MEAN PLATELET VOLUME 9.7 fl (7.4-10.4); MONO # 0.4 (0.1-0.6); MONO % 7.1 % (1.7-9.3); PLATELET COUNT 118 K/mm3 (130-400); RED BLOOD COUNT 3.01 M/mm3 (4.10-5.30); REDCELL DISTRIBUTION WIDTH-CV 14.9 % (11.5-14.5); WHITE BLOOD COUNT 5.1 K/mm3 (4.8-10.8)
[2017-07-14 07:57] LABS: CALCIUM 8.3 mg/dL (8.4-10.2); CREATININE, serum 0.7 mg/dL (0.52-1.25); HEMATOCRIT 27.6 % (37.0-47.0); HEMOGLOBIN 9.1 g/dl (12.5-16.0); MAGNESIUM 1.8 mg/dL (1.6-2.3); MEAN CORPUSCULAR HEMOGLOBIN 30 pg (27.0-31.0); POTASSIUM 3.8 mmol/L (3.4-5.0)
[2017-07-14 08:22] VITALS: BP 181/90; PULSE 112; TEMP 97.2
[2017-07-14 10:39] VITALS: BP 136/77
[2017-07-14 11:52] VITALS: BP 137/58; PULSE 63; TEMP 97.5
[2017-07-14] MEDS ORDERED: LEVAQUIN 750MG750 M1 PO (14:28)
[2017-07-14] MEDS ORDERED: FLAGYL500 MG PO (14:28)
== END 2017-07-14 16:13 | disposition home or self-care (01) | DRG 386 ==
LOC: COL.ER 19:47 → MEDICAL 22:26
PROVIDERS: Emergency Medicine; Family Medicine; Physician Assistant
DX: K51.012 Ulcerative (chronic) pancolitis with intestinal obstruction (principal); E87.1 Hypo-osmolality and hyponatremia; E87.2 Acidosis; I10 Essential (primary) hypertension; I48.91 Unspecified atrial fibrillation; E11.42 Type 2 diabetes mellitus with diabetic polyneuropathy; M06.9 Rheumatoid arthritis, unspecified; J42 Unspecified chronic bronchitis; I16.0 Hypertensive urgency; D64.9 Anemia, unspecified; E87.6 Hypokalemia
CPT/HCPCS: 99223-AI; 99232-AI; 99239; J1644; J1956; J2765; J3010; J3480; J7030; Q9967

== ENCOUNTER 2017-07-23 14:34 | Inpatient (IN) | payer MEDICARE, OTHER ==
[~2017-07-23] VITALS: Ht 152.4 cm; Wt 89.5 kg
[~2017-07-23 14:34] MED LIST changes: +AUGMENTIN 250 M1 TAB PO; +COLACE 100100 MG/CAP PO; +PRENATAL MVI PO
[2017-07-23 15:20] VITALS: BP 131/67; PULSE 68; TEMP 97.9
[2017-07-23 16:40] LABS: BASO % 0.3 % (0.0-2.0); GRAN # 10.8 (1.4-6.5); GRAN % 89.6 % (42.2-75.2); LYMPH # 0.6 (1.2-3.4); LYMPH % 4.6 % (20.0-51.0); MEAN CELL VOLUME 91 fl (80.0-100.0); MEAN CORPUSCULAR HGB CONC 34 g/dl (33.0-37.0); MEAN PLATELET VOLUME 9.3 fl (7.4-10.4); MONO # 0.6 (0.1-0.6); MONO % 4.8 % (1.7-9.3); PLATELET COUNT 139 K/mm3 (130-400); RED BLOOD COUNT 3.51 M/mm3 (4.10-5.30); WHITE BLOOD COUNT 12.1 K/mm3 (4.8-10.8)
[2017-07-23 16:42] LABS: HEMATOCRIT 31.8 % (37.0-47.0); HEMOGLOBIN 10.7 g/dl (12.5-16.0); MEAN CORPUSCULAR HEMOGLOBIN 30 pg (27.0-31.0)
[2017-07-23 16:59] LABS: ADJUSTED CALCIUM 9.4 mg/dL (8.4-10.2); BILIRUBIN,TOTAL 1.2 mg/dL (0.0-1.0); CALCIUM 8.6 mg/dL (8.4-10.2); CREATININE, serum 0.64 mg/dL (0.52-1.25); POTASSIUM 3.3 mmol/L (3.4-5.0); TOTAL PROTEIN 5.5 gm/dL (6.4-8.2)
[2017-07-23 18:30] LABS: COLLECTION METHOD CATHETER
[2017-07-23 18:39] LABS: BUDDING YEAST Present /hpf; MUCOUS Present /lpf; PH 7 (5-8); URINE APPEARANCE Clear; URINE BACTERIA None Seen /hpf; URINE BILIRUBIN Negative (NEGATIVE); URINE BLOOD Negative (NEGATIVE); URINE COLOR Yellow; URINE GLUCOSE Negative (NEGATIVE); URINE KETONE Negative (NEGATIVE); URINE LEUKOCYTE ESTERASE Negative (NEGATIVE); URINE PROTEIN(semi-quant) Negative (NEGATIVE); URINE RBC 0-2 /hpf; URINE UROBILINOGEN Negative (NEGATIVE)
[2017-07-23 20:08] VITALS: BP 143/78; PULSE 60; TEMP 98
[2017-07-24] VITALS (7 sets, daily range): BP systolic 95–160; BP diastolic 45–88; PULSE 56–89; TEMP 97.3–98.5
[2017-07-24 05:54] LABS: ADD PATHOLOGY DIFF REVIEW NO
[2017-07-24 06:10] LABS: HEMATOCRIT 29.8 % (37.0-47.0); HEMOGLOBIN 9.8 g/dl (12.5-16.0); MEAN CELL VOLUME 91 fl (80.0-100.0); MEAN CORPUSCULAR HEMOGLOBIN 30 pg (27.0-31.0); MEAN CORPUSCULAR HGB CONC 33 g/dl (33.0-37.0); MEAN PLATELET VOLUME 9.8 fl (7.4-10.4); PLATELET COUNT 139 K/mm3 (130-400); RED BLOOD COUNT 3.26 M/mm3 (4.10-5.30); WHITE BLOOD COUNT 8.8 K/mm3 (4.8-10.8)
[2017-07-24 06:14] LABS: ADJUSTED CALCIUM 9.3 mg/dL (8.4-10.2); ALBUMIN 2.8 gm/dL (3.5-5.0); CALCIUM 8.3 mg/dL (8.4-10.2); CREATININE, serum 0.74 mg/dL (0.52-1.25); MAGNESIUM 1.8 mg/dL (1.6-2.3); POTASSIUM 3.5 mmol/L (3.4-5.0); TOTAL PROTEIN 5.1 gm/dL (6.4-8.2)
[2017-07-24 07:07] LABS: BAND 19 % (0-10); LYMPHOCYTE 9 % (20.0-51.0); METAMYELOCYTE 1 % (0-0); NEUTROPHILS 71 % (42.0-75.2); OVALOCYTES 1+; PLATELET ESTIMATE NORMAL (NORMAL); TOTAL CELLS COUNTED 100
[2017-07-25 03:51] VITALS: BP 132/64; PULSE 89; TEMP 98.3
[2017-07-25 07:57] VITALS: BP 155/80; PULSE 57; TEMP 97.5
[2017-07-25 09:32] LABS: BASO % 0.7 % (0.0-2.0); GRAN # 3.2 (1.4-6.5); LYMPH # 0.5 (1.2-3.4); LYMPH % 11.9 % (20.0-51.0); MEAN CELL VOLUME 93 fl (80.0-100.0); MEAN CORPUSCULAR HGB CONC 33 g/dl (33.0-37.0); MEAN PLATELET VOLUME 9.3 fl (7.4-10.4); MONO # 0.3 (0.1-0.6); MONO % 8.2 % (1.7-9.3); PLATELET COUNT 123 K/mm3 (130-400); RED BLOOD COUNT 3.06 M/mm3 (4.10-5.30)
[2017-07-25 09:38] LABS: HEMATOCRIT 28.3 % (37.0-47.0); HEMOGLOBIN 9.3 g/dl (12.5-16.0); MEAN CORPUSCULAR HEMOGLOBIN 30 pg (27.0-31.0)
[2017-07-25 09:42] LABS: CALCIUM 8.2 mg/dL (8.4-10.2); CREATININE, serum 0.73 mg/dL (0.52-1.25); POTASSIUM 3.7 mmol/L (3.4-5.0)
[2017-07-25 12:13] VITALS: BP 119/68; PULSE 61; TEMP 98.1
[2017-07-25 15:33] VITALS: BP 123/63; PULSE 54; TEMP 97
[2017-07-25 21:06] VITALS: BP 170/88; PULSE 72; TEMP 98.3
[2017-07-26] VITALS (532 sets, daily range): BP systolic 50–200; BP diastolic 23–147; PULSE 52–113; TEMP 96.1–98.3; O2SAT 91–100
[2017-07-26 08:04] LABS: BASO # 0.1 (0.0-0.2); BASO % 1.3 % (0.0-2.0); EOS # 0.1 (0.0-0.7); EOS % 2.6 % (0-4.0); GRAN # 2.6 (1.4-6.5); GRAN % 68.6 % (42.2-75.2); LYMPH # 0.7 (1.2-3.4); LYMPH % 17.2 % (20.0-51.0); MEAN CELL VOLUME 94 fl (80.0-100.0); MEAN CORPUSCULAR HGB CONC 33 g/dl (33.0-37.0); MEAN PLATELET VOLUME 9.6 fl (7.4-10.4); MONO # 0.4 (0.1-0.6); MONO % 9.5 % (1.7-9.3); PLATELET COUNT 139 K/mm3 (130-400); RED BLOOD COUNT 3.24 M/mm3 (4.10-5.30); WHITE BLOOD COUNT 3.8 K/mm3 (4.8-10.8)
[2017-07-26 08:14] LABS: CALCIUM 8.6 mg/dL (8.4-10.2); CREATININE, serum 0.7 mg/dL (0.52-1.25); POTASSIUM 3.6 mmol/L (3.4-5.0)
[2017-07-26 08:16] LABS: HEMOGLOBIN 9.9 g/dl (12.5-16.0); MEAN CORPUSCULAR HEMOGLOBIN 31 pg (27.0-31.0)
[2017-07-26 08:17] LABS: HEMATOCRIT 30.3 % (37.0-47.0)
[2017-07-26 11:53] LABS: ARTERIAL BLD GAS O2 SATURATION 98.6 % (92-100); ARTERIAL BLD GAS TCO2 CT 16.5; ARTERIAL BLOOD GAS BASE EXCESS -9.2 (-2-2); ARTERIAL BLOOD GAS HCO3 15.6 meq/L (22-26); ARTERIAL BLOOD GAS pH 7.34 (7.35-7.45); OXYHEMOGLOBIN 97.4 %
[2017-07-26 11:55] LABS: ATS? NO
[2017-07-26 14:25] LABS: ARTERIAL BLD GAS O2 SATURATION 97.5 % (92-100); ARTERIAL BLD GAS TCO2 CT 17.4; ARTERIAL BLOOD GAS BASE EXCESS -6.8 (-2-2); ARTERIAL BLOOD GAS HCO3 16.6 meq/L (22-26); ARTERIAL BLOOD GAS pH 7.41 (7.35-7.45); OXYHEMOGLOBIN 96.5 %
[2017-07-26 14:27] LABS: ARTERIAL BLOOD GAS PO2 121.5 mmHg (80-100); ATS? NO
[2017-07-26 14:28] LABS: ABG VENTILATOR TIDAL VOLUME 450 mL
[2017-07-26 15:16] LABS: HEMATOCRIT 33.6 % (37.0-47.0); HEMOGLOBIN 11.3 g/dl (12.5-16.0)
[2017-07-26 15:28] LABS: CALCIUM 7.5 mg/dL (8.4-10.2); CREATININE, serum 0.57 mg/dL (0.52-1.25); POTASSIUM 3.2 mmol/L (3.4-5.0)
[2017-07-26 20:08] LABS: ARTERIAL BLD GAS O2 SATURATION 96.1 % (92-100); ARTERIAL BLD GAS TCO2 CT 17.1; ARTERIAL BLOOD GAS BASE EXCESS -8.5 (-2-2); ARTERIAL BLOOD GAS HCO3 16.1 meq/L (22-26); ARTERIAL BLOOD GAS PO2 94.6 mmHg (80-100); ARTERIAL BLOOD GAS pH 7.34 (7.35-7.45); OXYHEMOGLOBIN 95.1 %
[2017-07-26 20:09] LABS: ATS? NO
[2017-07-26 22:18] LABS: MEAN CELL VOLUME 91 fl (80.0-100.0); MEAN CORPUSCULAR HGB CONC 33 g/dl (33.0-37.0); MEAN PLATELET VOLUME 9.1 fl (7.4-10.4); PLATELET COUNT 175 K/mm3 (130-400); WHITE BLOOD COUNT 8.6 K/mm3 (4.8-10.8)
[2017-07-26 22:24] LABS: HEMATOCRIT 32.6 % (37.0-47.0); HEMOGLOBIN 10.6 g/dl (12.5-16.0); MEAN CORPUSCULAR HEMOGLOBIN 29 pg (27.0-31.0)
[2017-07-26 22:28] LABS: CALCIUM 7.5 mg/dL (8.4-10.2); CREATININE, serum 0.65 mg/dL (0.52-1.25); MAGNESIUM 1.3 mg/dL (1.6-2.3); POTASSIUM 5.1 mmol/L (3.4-5.0)
[2017-07-27] VITALS (1169 sets, daily range): BP systolic 93–122; BP diastolic 50–71; PULSE 84–133; TEMP 97.1–100.4; O2SAT 84–100
[2017-07-27 05:03] LABS: ARTERIAL BLD GAS O2 SATURATION 96.4 % (92-100); ARTERIAL BLD GAS TCO2 CT 19.8; ARTERIAL BLOOD GAS BASE EXCESS -5.4 (-2-2); ARTERIAL BLOOD GAS HCO3 18.8 meq/L (22-26); ARTERIAL BLOOD GAS PO2 95.6 mmHg (80-100); ARTERIAL BLOOD GAS pH 7.39 (7.35-7.45); ATS? NO; OXYHEMOGLOBIN 95.5 %
[2017-07-27 05:56] LABS: MEAN CELL VOLUME 90 fl (80.0-100.0); MEAN CORPUSCULAR HGB CONC 33 g/dl (33.0-37.0); MEAN PLATELET VOLUME 9.3 fl (7.4-10.4); PLATELET COUNT 170 K/mm3 (130-400); RED BLOOD COUNT 3.23 M/mm3 (4.10-5.30); WHITE BLOOD COUNT 8.4 K/mm3 (4.8-10.8)
[2017-07-27 05:57] LABS: HEMATOCRIT 29.2 % (37.0-47.0); HEMOGLOBIN 9.7 g/dl (12.5-16.0); MEAN CORPUSCULAR HEMOGLOBIN 30 pg (27.0-31.0)
[2017-07-27 05:58] LABS: ADD PATHOLOGY DIFF REVIEW NO
[2017-07-27 06:04] LABS: CALCIUM 7.7 mg/dL (8.4-10.2); CREATININE, serum 0.76 mg/dL (0.52-1.25); MAGNESIUM 1.3 mg/dL (1.6-2.3); PHOSPHOROUS 3.9 mg/dL (2.5-4.5); POTASSIUM 4.5 mmol/L (3.4-5.0)
[2017-07-27 06:18] LABS: BAND 6 % (0-10); EOSINOPHIL 1 % (0-4); LYMPHOCYTE 9 % (20.0-51.0); METAMYELOCYTE 1 % (0-0); NEUTROPHILS 80 % (42.0-75.2); TOTAL CELLS COUNTED 100
[2017-07-27 06:19] LABS: ROULEAUX 1+
[2017-07-27 06:20] LABS: ANISOCYTOSIS 1+; HYPOCHROMIA 2+; MICROCYTOSIS 1+
[2017-07-27 06:22] LABS: POIKILOCYTOSIS 1+
[2017-07-27 12:32] LABS: ADJUSTED CALCIUM 9.2 mg/dL (8.4-10.2); ALBUMIN 2.2 gm/dL (3.5-5.0); BILIRUBIN,TOTAL 0.7 mg/dL (0.0-1.0); CALCIUM 7.8 mg/dL (8.4-10.2); CREATININE, serum 0.78 mg/dL (0.52-1.25); POTASSIUM 4.6 mmol/L (3.4-5.0); TOTAL PROTEIN 4.5 gm/dL (6.4-8.2)
[2017-07-27 12:39] LABS: PRE ALBUMIN 11.3 mg/dL (17.6-36.0)
[2017-07-27 18:40] LABS: CALCIUM 7.7 mg/dL (8.4-10.2); CREATININE, serum 0.83 mg/dL (0.52-1.25); MAGNESIUM 2.2 mg/dL (1.6-2.3); PHOSPHOROUS 3.4 mg/dL (2.5-4.5); POTASSIUM 3.9 mmol/L (3.4-5.0)
[2017-07-27 19:02] LABS: ARTERIAL BLD GAS O2 SATURATION 96.5 % (92-100); ARTERIAL BLD GAS TCO2 CT 23.8; ARTERIAL BLOOD GAS BASE EXCESS -2.8 (-2-2); ARTERIAL BLOOD GAS HCO3 22.5 meq/L (22-26); ARTERIAL BLOOD GAS PO2 97.2 mmHg (80-100); ARTERIAL BLOOD GAS pH 7.36 (7.35-7.45); OXYHEMOGLOBIN 95.7 %
[2017-07-27 19:03] LABS: ATS? YES
[2017-07-28] VITALS (1340 sets, daily range): BP systolic 78–133; BP diastolic 45–76; PULSE 81–135; TEMP 97.4–101; O2SAT 93–100
[2017-07-28 05:11] LABS: ARTERIAL BLD GAS O2 SATURATION 97.2 % (92-100); ARTERIAL BLD GAS TCO2 CT 21.7; ARTERIAL BLOOD GAS BASE EXCESS -3.8 (-2-2); ARTERIAL BLOOD GAS HCO3 20.6 meq/L (22-26); ARTERIAL BLOOD GAS PO2 117.1 mmHg (80-100); ARTERIAL BLOOD GAS pH 7.39 (7.35-7.45); OXYHEMOGLOBIN 96.1 %
[2017-07-28 05:12] LABS: ATS? YES
[2017-07-28 06:15] LABS: MEAN CELL VOLUME 92 fl (80.0-100.0); MEAN CORPUSCULAR HGB CONC 32 g/dl (33.0-37.0); MEAN PLATELET VOLUME 9.1 fl (7.4-10.4); PLATELET COUNT 187 K/mm3 (130-400); RED BLOOD COUNT 2.93 M/mm3 (4.10-5.30); WHITE BLOOD COUNT 10.7 K/mm3 (4.8-10.8)
[2017-07-28 06:20] LABS: ADD PATHOLOGY DIFF REVIEW NO; HEMATOCRIT 26.9 % (37.0-47.0); HEMOGLOBIN 8.6 g/dl (12.5-16.0); MEAN CORPUSCULAR HEMOGLOBIN 29 pg (27.0-31.0)
[2017-07-28 06:29] LABS: CALCIUM 7.8 mg/dL (8.4-10.2); CREATININE, serum 0.81 mg/dL (0.52-1.25); MAGNESIUM 1.9 mg/dL (1.6-2.3); PHOSPHOROUS 2.9 mg/dL (2.5-4.5); POTASSIUM 3.5 mmol/L (3.4-5.0)
[2017-07-28 06:36] LABS: PRE ALBUMIN 7.9 mg/dL (17.6-36.0)
[2017-07-28 06:50] LABS: BAND 11 % (0-10); BASOPHIL 1 % (0-2); EOSINOPHIL 2 % (0-4); LYMPHOCYTE 16 % (20.0-51.0); METAMYELOCYTE 2 % (0-0); MYELOCYTE 1 % (0-0); NEUTROPHILS 67 % (42.0-75.2); PLATELET ESTIMATE NORMAL (NORMAL); TOTAL CELLS COUNTED 100
[2017-07-29] VITALS (1056 sets, daily range): BP systolic 102–171; BP diastolic 58–100; PULSE 66–114; TEMP 97.1–99.6; O2SAT 93–100
[2017-07-29 05:02] LABS: ARTERIAL BLD GAS O2 SATURATION 97.3 % (92-100); ARTERIAL BLD GAS TCO2 CT 21.7; ARTERIAL BLOOD GAS BASE EXCESS -3.6 (-2-2); ARTERIAL BLOOD GAS HCO3 20.7 meq/L (22-26); ARTERIAL BLOOD GAS PHT 7.41 C (7.35-7.45); ARTERIAL BLOOD GAS PO2 119.2 mmHg (80-100); ARTERIAL BLOOD GAS PO2T 119.2 (80-100); ARTERIAL BLOOD GAS pH 7.41 (7.35-7.45); OXYHEMOGLOBIN 95.8 %
[2017-07-29 05:03] LABS: ALLEN TEST NO; ALLENS TEST RESULT PASS; ATS? YES
[2017-07-29 06:00] LABS: CALCIUM 8.2 mg/dL (8.4-10.2); CREATININE, serum 0.66 mg/dL (0.52-1.25); MAGNESIUM 2.2 mg/dL (1.6-2.3); PHOSPHOROUS 2.1 mg/dL (2.5-4.5); POTASSIUM 4.2 mmol/L (3.4-5.0)
[2017-07-29 06:07] LABS: BASO % 0.4 % (0.0-2.0); EOS # 0.2 (0.0-0.7); EOS % 3.1 % (0-4.0); GRAN # 4.3 (1.4-6.5); GRAN % 79.4 % (42.2-75.2); LYMPH # 0.5 (1.2-3.4); LYMPH % 9.8 % (20.0-51.0); MEAN CELL VOLUME 94 fl (80.0-100.0); MEAN CORPUSCULAR HGB CONC 32 g/dl (33.0-37.0); MEAN PLATELET VOLUME 9.5 fl (7.4-10.4); MONO # 0.4 (0.1-0.6); MONO % 6.4 % (1.7-9.3); PLATELET COUNT 104 K/mm3 (130-400); RED BLOOD COUNT 2.08 M/mm3 (4.10-5.30); WHITE BLOOD COUNT 5.4 K/mm3 (4.8-10.8)
[2017-07-29 06:12] LABS: TROPONIN-I 0.014 ng/mL (0.000-0.034)
[2017-07-29 06:13] LABS: HEMATOCRIT 19.6 % (37.0-47.0); HEMOGLOBIN 6.2 g/dl (12.5-16.0); MEAN CORPUSCULAR HEMOGLOBIN 30 pg (27.0-31.0)
[2017-07-29 08:01] LABS: ARTERIAL BLD GAS O2 SATURATION 96.2 % (92-100); ARTERIAL BLD GAS TCO2 CT 20.3; ARTERIAL BLOOD GAS BASE EXCESS -5.2 (-2-2); ARTERIAL BLOOD GAS HCO3 19.3 meq/L (22-26); ARTERIAL BLOOD GAS PO2 95.4 mmHg (80-100); ARTERIAL BLOOD GAS pH 7.39 (7.35-7.45); ATS? NO; OXYHEMOGLOBIN 95.1 %
[2017-07-29 08:25] LABS: HEMATOCRIT 21.4 % (37.0-47.0); HEMOGLOBIN 6.9 g/dl (12.5-16.0)
[2017-07-29 10:12] LABS: ARTERIAL BLD GAS TCO2 CT 24.2; ARTERIAL BLOOD GAS BASE EXCESS -0.9 (-2-2); ARTERIAL BLOOD GAS HCO3 23.1 meq/L (22-26); ARTERIAL BLOOD GAS PHT 7.44 C (7.35-7.45); ARTERIAL BLOOD GAS PO2 74.2 mmHg (80-100); ARTERIAL BLOOD GAS PO2T 74.2 (80-100); ARTERIAL BLOOD GAS pH 7.44 (7.35-7.45); OXYHEMOGLOBIN 92.5 %
[2017-07-29 10:14] LABS: ATS? NO
[2017-07-29 15:19] LABS: HEMATOCRIT 29.1 % (37.0-47.0); HEMOGLOBIN 9.5 g/dl (12.5-16.0)
[2017-07-29 15:27] LABS: CALCIUM 8.9 mg/dL (8.4-10.2); CREATININE, serum 0.68 mg/dL (0.52-1.25); POTASSIUM 4.7 mmol/L (3.4-5.0)
[2017-07-29 16:48] LABS: ADJUSTED CALCIUM 9.4 mg/dL (8.4-10.2); ALBUMIN 3.4 gm/dL (3.5-5.0); BILIRUBIN,TOTAL 1.3 mg/dL (0.0-1.0); TOTAL PROTEIN 5.9 gm/dL (6.4-8.2)
[2017-07-29 19:09] LABS: HEMATOCRIT 26.1 % (37.0-47.0); HEMOGLOBIN 8.5 g/dl (12.5-16.0)
[2017-07-29 19:17] LABS: MAGNESIUM 2.2 mg/dL (1.6-2.3); PHOSPHOROUS 3.1 mg/dL (2.5-4.5); POTASSIUM 4.4 mmol/L (3.4-5.0)
[2017-07-30] VITALS (758 sets, daily range): BP systolic 116–172; BP diastolic 60–89; PULSE 69–82; TEMP 97.3–98.5; O2SAT 92–100
[2017-07-30 05:06] LABS: MEAN CELL VOLUME 90 fl (80.0-100.0); MEAN CORPUSCULAR HGB CONC 33 g/dl (33.0-37.0); MEAN PLATELET VOLUME 9.1 fl (7.4-10.4); PLATELET COUNT 116 K/mm3 (130-400); RED BLOOD COUNT 2.72 M/mm3 (4.10-5.30); WHITE BLOOD COUNT 5.7 K/mm3 (4.8-10.8)
[2017-07-30 05:20] LABS: ADJUSTED CALCIUM 9.3 mg/dL (8.4-10.2); ALBUMIN 3.3 gm/dL (3.5-5.0); BILIRUBIN,TOTAL 1.1 mg/dL (0.0-1.0); CALCIUM 8.7 mg/dL (8.4-10.2); CREATININE, serum 0.68 mg/dL (0.52-1.25); MAGNESIUM 2.1 mg/dL (1.6-2.3); PHOSPHOROUS 3.1 mg/dL (2.5-4.5); POTASSIUM 3.9 mmol/L (3.4-5.0); TOTAL PROTEIN 5.5 gm/dL (6.4-8.2)
[2017-07-30 05:33] LABS: TROPONIN-I 0.028 ng/mL (0.000-0.034)
[2017-07-30 05:37] LABS: ADD PATHOLOGY DIFF REVIEW NO; HEMATOCRIT 24.6 % (37.0-47.0); MEAN CORPUSCULAR HEMOGLOBIN 29 pg (27.0-31.0)
[2017-07-30 06:03] LABS: BAND 4 % (0-10); LYMPHOCYTE 10 % (20.0-51.0); METAMYELOCYTE 1 % (0-0); NEUTROPHILS 79 % (42.0-75.2); ROULEAUX 1+; TOTAL CELLS COUNTED 100
[2017-07-30 06:04] LABS: ANISOCYTOSIS 1+; HYPOCHROMIA 2+; MICROCYTOSIS 1+; POIKILOCYTOSIS 1+; POLYCHROMASIA 1+
[2017-07-30 06:06] LABS: ARTERIAL BLD GAS O2 SATURATION 97.1 % (92-100); ARTERIAL BLD GAS TCO2 CT 27.4; ARTERIAL BLOOD GAS BASE EXCESS 3.4 (-2-2); ARTERIAL BLOOD GAS HCO3 26.4 meq/L (22-26); ARTERIAL BLOOD GAS PHT 7.52 C (7.35-7.45); ARTERIAL BLOOD GAS PO2 102.1 mmHg (80-100); ARTERIAL BLOOD GAS PO2T 102.1 (80-100); ARTERIAL BLOOD GAS pH 7.52 (7.35-7.45); ATS? YES; OXYHEMOGLOBIN 95.8 %
[2017-07-30 06:07] LABS: ALLEN TEST YES; ALLENS TEST RESULT PASS
[2017-07-30 20:22] LABS: CALCIUM 9.1 mg/dL (8.4-10.2); CREATININE, serum 0.7 mg/dL (0.52-1.25); MAGNESIUM 2.2 mg/dL (1.6-2.3); PHOSPHOROUS 3.1 mg/dL (2.5-4.5)
[2017-07-31] VITALS (672 sets, daily range): BP systolic 138–168; BP diastolic 74–100; PULSE 79–101; TEMP 97.3–98.8; O2SAT 93–100
[2017-07-31 09:14] LABS: MEAN CELL VOLUME 90 fl (80.0-100.0); MEAN CORPUSCULAR HGB CONC 32 g/dl (33.0-37.0); MEAN PLATELET VOLUME 9.6 fl (7.4-10.4); PLATELET COUNT 151 K/mm3 (130-400); RED BLOOD COUNT 3.39 M/mm3 (4.10-5.30); WHITE BLOOD COUNT 6.5 K/mm3 (4.8-10.8)
[2017-07-31 09:15] LABS: HEMATOCRIT 30.6 % (37.0-47.0); HEMOGLOBIN 9.9 g/dl (12.5-16.0); MEAN CORPUSCULAR HEMOGLOBIN 29 pg (27.0-31.0)
[2017-07-31 09:16] LABS: ADD PATHOLOGY DIFF REVIEW NO
[2017-07-31 09:21] LABS: ALBUMIN 3.9 gm/dL (3.5-5.0); CALCIUM 9.6 mg/dL (8.4-10.2); CREATININE, serum 0.74 mg/dL (0.52-1.25); POTASSIUM 4.4 mmol/L (3.4-5.0)
[2017-07-31 09:40] LABS: BAND 25 % (0-10); EOSINOPHIL 2 % (0-4); LYMPHOCYTE 9 % (20.0-51.0); NEUTROPHILS 58 % (42.0-75.2); NUCLEATED RED BLOOD CELL 1 (0-6); TOTAL CELLS COUNTED 100
[2017-07-31 09:42] LABS: HYPOCHROMIA 1+; PLATELET ESTIMATE NORMAL (NORMAL)
[2017-07-31 09:43] LABS: ANISOCYTOSIS 1+
[2017-07-31 09:44] LABS: TOXIC GRANULATION PRESENT
[2017-08-01] VITALS (7 sets, daily range): BP systolic 131–161; BP diastolic 79–105; PULSE 80–98; TEMP 97.5–99.1
[2017-08-01 11:34] LABS: ADD PATHOLOGY DIFF REVIEW NO
[2017-08-01 11:40] LABS: MEAN CELL VOLUME 92 fl (80.0-100.0); MEAN CORPUSCULAR HGB CONC 32 g/dl (33.0-37.0); PLATELET COUNT 213 K/mm3 (130-400); RED BLOOD COUNT 3.53 M/mm3 (4.10-5.30); WHITE BLOOD COUNT 11.7 K/mm3 (4.8-10.8)
[2017-08-01 11:41] LABS: HEMATOCRIT 32.4 % (37.0-47.0); HEMOGLOBIN 10.2 g/dl (12.5-16.0); MEAN CORPUSCULAR HEMOGLOBIN 29 pg (27.0-31.0)
[2017-08-01 11:49] LABS: ADJUSTED CALCIUM 9.7 mg/dL (8.4-10.2); ALBUMIN 3.9 gm/dL (3.5-5.0); CALCIUM 9.6 mg/dL (8.4-10.2); CREATININE, serum 0.79 mg/dL (0.52-1.25); POTASSIUM 4.9 mmol/L (3.4-5.0); TOTAL PROTEIN 6.4 gm/dL (6.4-8.2)
[2017-08-01 12:20] LABS: BAND 4 % (0-10); LYMPHOCYTE 8 % (20.0-51.0); METAMYELOCYTE 1 % (0-0); NEUTROPHILS 83 % (42.0-75.2); PLATELET ESTIMATE NORMAL (NORMAL); TOTAL CELLS COUNTED 100
[2017-08-01 19:22] LABS: 12 HR URINE TOTAL VOLUME 1.05 L
[2017-08-02 02:03] VITALS: BP 151/85; PULSE 87; TEMP 98.2
[2017-08-02 05:39] VITALS: BP 142/82; BP 180/98; PULSE 89; TEMP 97.5
[2017-08-02 07:40] LABS: MEAN CELL VOLUME 92 fl (80.0-100.0); MEAN CORPUSCULAR HGB CONC 32 g/dl (33.0-37.0); MEAN PLATELET VOLUME 9.5 fl (7.4-10.4); PLATELET COUNT 177 K/mm3 (130-400); RED BLOOD COUNT 3.34 M/mm3 (4.10-5.30); WHITE BLOOD COUNT 9.1 K/mm3 (4.8-10.8)
[2017-08-02 07:42] LABS: ADD PATHOLOGY DIFF REVIEW NO; HEMATOCRIT 30.7 % (37.0-47.0); HEMOGLOBIN 9.7 g/dl (12.5-16.0); MEAN CORPUSCULAR HEMOGLOBIN 29 pg (27.0-31.0)
[2017-08-02 08:06] LABS: ADJUSTED CALCIUM 9.6 mg/dL (8.4-10.2); ALBUMIN 3.7 gm/dL (3.5-5.0); BILIRUBIN,TOTAL 0.8 mg/dL (0.0-1.0); CALCIUM 9.4 mg/dL (8.4-10.2); CREATININE, serum 0.82 mg/dL (0.52-1.25); MAGNESIUM 2.3 mg/dL (1.6-2.3); PHOSPHOROUS 4.2 mg/dL (2.5-4.5); POTASSIUM 4.8 mmol/L (3.4-5.0); TOTAL PROTEIN 6.2 gm/dL (6.4-8.2)
[2017-08-02 08:29] LABS: BAND 10 % (0-10); LYMPHOCYTE 12 % (20.0-51.0); METAMYELOCYTE 2 % (0-0); MYELOCYTE 2 % (0-0); NEUTROPHILS 70 % (42.0-75.2); NUCLEATED RED BLOOD CELL 1 (0-6); PLATELET ESTIMATE NORMAL (NORMAL); TOTAL CELLS COUNTED 100
[2017-08-02 08:30] LABS: ANISOCYTOSIS 1+; TOXIC GRANULATION PRESENT
[2017-08-02 08:31] LABS: SPHEROCYTE 2+
[2017-08-02 09:52] VITALS: BP 144/72; PULSE 92; TEMP 98
[2017-08-02 14:31] VITALS: BP 141/83; PULSE 94; TEMP 99.4
[2017-08-02 18:14] VITALS: BP 168/80; PULSE 80; TEMP 98.4
[2017-08-02 22:00] VITALS: BP 143/73; PULSE 75; TEMP 98.4
[2017-08-03 01:56] VITALS: BP 114/72; PULSE 84; TEMP 98.5
[2017-08-03 05:40] VITALS: BP 122/58; PULSE 79; TEMP 97.3
[2017-08-03 09:38] LABS: ADD PATHOLOGY DIFF REVIEW NO
[2017-08-03 09:44] VITALS: BP 149/75; PULSE 84; TEMP 98.2
[2017-08-03 09:49] LABS: MEAN CELL VOLUME 92 fl (80.0-100.0); MEAN CORPUSCULAR HGB CONC 32 g/dl (33.0-37.0); MEAN PLATELET VOLUME 9.7 fl (7.4-10.4); PLATELET COUNT 198 K/mm3 (130-400); RED BLOOD COUNT 3.12 M/mm3 (4.10-5.30); WHITE BLOOD COUNT 8.2 K/mm3 (4.8-10.8)
[2017-08-03 09:50] LABS: HEMATOCRIT 28.6 % (37.0-47.0); MEAN CORPUSCULAR HEMOGLOBIN 29 pg (27.0-31.0)
[2017-08-03 09:58] LABS: ADJUSTED CALCIUM 9.5 mg/dL (8.4-10.2); ALBUMIN 3.5 gm/dL (3.5-5.0); BILIRUBIN,TOTAL 0.7 mg/dL (0.0-1.0); CALCIUM 9.1 mg/dL (8.4-10.2); CREATININE, serum 0.74 mg/dL (0.52-1.25); MAGNESIUM 2.1 mg/dL (1.6-2.3); PHOSPHOROUS 3.4 mg/dL (2.5-4.5); POTASSIUM 3.7 mmol/L (3.4-5.0); TOTAL PROTEIN 5.9 gm/dL (6.4-8.2)
[2017-08-03 10:27] LABS: BAND 15 % (0-10); EOSINOPHIL 2 % (0-4); HYPOCHROMIA 1+; LYMPHOCYTE 9 % (20.0-51.0); METAMYELOCYTE 2 % (0-0); NEUTROPHILS 70 % (42.0-75.2); PLATELET ESTIMATE NORMAL (NORMAL); POLYCHROMASIA 1+; TOTAL CELLS COUNTED 100; TOXIC GRANULATION PRESENT
[2017-08-03 14:04] VITALS: BP 158/72; PULSE 76; TEMP 98.5
[2017-08-03 18:14] VITALS: BP 160/98; PULSE 112; TEMP 99.3
[2017-08-03 23:13] VITALS: BP 141/72; PULSE 82; TEMP 98.2
[2017-08-04 02:10] VITALS: BP 117/60; PULSE 75; TEMP 98
[2017-08-04 06:12] VITALS: BP 153/72; PULSE 88; TEMP 97.8
[2017-08-04 07:37] LABS: MEAN CELL VOLUME 93 fl (80.0-100.0); MEAN CORPUSCULAR HGB CONC 31 g/dl (33.0-37.0); MEAN PLATELET VOLUME 10.1 fl (7.4-10.4); PLATELET COUNT 180 K/mm3 (130-400); RED BLOOD COUNT 3.05 M/mm3 (4.10-5.30); WHITE BLOOD COUNT 6.6 K/mm3 (4.8-10.8)
[2017-08-04 07:44] LABS: ADD PATHOLOGY DIFF REVIEW NO; HEMATOCRIT 28.3 % (37.0-47.0); HEMOGLOBIN 8.8 g/dl (12.5-16.0); MEAN CORPUSCULAR HEMOGLOBIN 29 pg (27.0-31.0)
[2017-08-04 07:46] LABS: ADJUSTED CALCIUM 9.6 mg/dL (8.4-10.2); ALBUMIN 3.4 gm/dL (3.5-5.0); BILIRUBIN,TOTAL 0.9 mg/dL (0.0-1.0); CALCIUM 9.1 mg/dL (8.4-10.2); CREATININE, serum 0.67 mg/dL (0.52-1.25); MAGNESIUM 2.2 mg/dL (1.6-2.3); PHOSPHOROUS 3.3 mg/dL (2.5-4.5); POTASSIUM 3.3 mmol/L (3.4-5.0)
[2017-08-04 07:53] LABS: PRE ALBUMIN 23.7 mg/dL (17.6-36.0)
[2017-08-04 08:19] LABS: ANISOCYTOSIS 1+; BAND 15 % (0-10); BASOPHIL 1 % (0-2); EOSINOPHIL 1 % (0-4); LYMPHOCYTE 15 % (20.0-51.0); MYELOCYTE 1 % (0-0); NEUTROPHILS 64 % (42.0-75.2); PLATELET ESTIMATE NORMAL (NORMAL); TOTAL CELLS COUNTED 100
[2017-08-04 08:20] LABS: TOXIC GRANULATION PRESENT
[2017-08-04 08:22] LABS: HYPOCHROMIA 1+
[2017-08-04 11:13] VITALS: BP 103/51; PULSE 83; TEMP 97.7
[2017-08-04 13:44] VITALS: BP 137/56; PULSE 74; TEMP 98.3
[2017-08-04 17:03] VITALS: BP 144/82; PULSE 82; TEMP 98.4
[2017-08-04 21:55] VITALS: BP 133/56; PULSE 74; TEMP 99.5
[2017-08-05] VITALS (7 sets, daily range): BP systolic 130–179; BP diastolic 51–97; PULSE 78–113; TEMP 97.2–99.4
[2017-08-05 10:38] LABS: BASO # 0.1 (0.0-0.2); BASO % 1.1 % (0.0-2.0); EOS # 0.2 (0.0-0.7); EOS % 2.5 % (0-4.0); GRAN # 6.3 (1.4-6.5); GRAN % 82.9 % (42.2-75.2); LYMPH # 0.5 (1.2-3.4); MEAN CELL VOLUME 93 fl (80.0-100.0); MEAN CORPUSCULAR HGB CONC 32 g/dl (33.0-37.0); MEAN PLATELET VOLUME 9.9 fl (7.4-10.4); MONO # 0.4 (0.1-0.6); MONO % 5.4 % (1.7-9.3); PLATELET COUNT 202 K/mm3 (130-400); RED BLOOD COUNT 3.15 M/mm3 (4.10-5.30); WHITE BLOOD COUNT 7.6 K/mm3 (4.8-10.8)
[2017-08-05 10:44] LABS: HEMATOCRIT 29.2 % (37.0-47.0); HEMOGLOBIN 9.3 g/dl (12.5-16.0); MEAN CORPUSCULAR HEMOGLOBIN 30 pg (27.0-31.0)
[2017-08-05 10:50] LABS: CALCIUM 9.1 mg/dL (8.4-10.2); CREATININE, serum 0.66 mg/dL (0.52-1.25); POTASSIUM 3.6 mmol/L (3.4-5.0)
[2017-08-06 01:37] VITALS: BP 137/71; PULSE 79; TEMP 98.4
[2017-08-06 04:58] VITALS: BP 132/75; PULSE 101; TEMP 98.6
[2017-08-06 07:25] LABS: CALCIUM 9.2 mg/dL (8.4-10.2); CREATININE, serum 0.68 mg/dL (0.52-1.25); MAGNESIUM 2.3 mg/dL (1.6-2.3); PHOSPHOROUS 3.5 mg/dL (2.5-4.5); POTASSIUM 3.6 mmol/L (3.4-5.0)
[2017-08-06 11:09] VITALS: BP 150/85; PULSE 103; TEMP 98.9
[2017-08-06 11:23] LABS: MEAN CELL VOLUME 96 fl (80.0-100.0); MEAN CORPUSCULAR HGB CONC 31 g/dl (33.0-37.0); MEAN PLATELET VOLUME 10.1 fl (7.4-10.4); PLATELET COUNT 205 K/mm3 (130-400); RED BLOOD COUNT 3.13 M/mm3 (4.10-5.30); WHITE BLOOD COUNT 5.8 K/mm3 (4.8-10.8)
[2017-08-06 11:24] LABS: ADD PATHOLOGY DIFF REVIEW NO; HEMATOCRIT 29.9 % (37.0-47.0); HEMOGLOBIN 9.2 g/dl (12.5-16.0); MEAN CORPUSCULAR HEMOGLOBIN 29 pg (27.0-31.0)
[2017-08-06 12:14] LABS: BAND 6 % (0-10); BASOPHIL 1 % (0-2); EOSINOPHIL 1 % (0-4); LYMPHOCYTE 1 % (20.0-51.0); NEUTROPHILS 90 % (42.0-75.2); TOTAL CELLS COUNTED 100
[2017-08-06 12:15] LABS: PLATELET ESTIMATE NORMAL (NORMAL)
[2017-08-06 13:34] VITALS: BP 162/78; PULSE 81; TEMP 98.5
[2017-08-06 17:28] VITALS: BP 165/92; PULSE 107; TEMP 99.1
[2017-08-06 22:00] VITALS: BP 146/73; PULSE 78; TEMP 99.1
[2017-08-07] VITALS (7 sets, daily range): BP systolic 89–189; BP diastolic 45–103; PULSE 65–125; TEMP 97.4–99.6
[2017-08-07 08:45] LABS: MEAN CELL VOLUME 93 fl (80.0-100.0); MEAN CORPUSCULAR HGB CONC 31 g/dl (33.0-37.0); MEAN PLATELET VOLUME 10.5 fl (7.4-10.4); PLATELET COUNT 207 K/mm3 (130-400); RED BLOOD COUNT 3.36 M/mm3 (4.10-5.30); WHITE BLOOD COUNT 7.1 K/mm3 (4.8-10.8)
[2017-08-07 08:47] LABS: HEMATOCRIT 31.3 % (37.0-47.0); HEMOGLOBIN 9.7 g/dl (12.5-16.0); MEAN CORPUSCULAR HEMOGLOBIN 29 pg (27.0-31.0)
[2017-08-07 08:48] LABS: ADD PATHOLOGY DIFF REVIEW NO
[2017-08-07 08:53] LABS: ADJUSTED CALCIUM 9.6 mg/dL (8.4-10.2); ALBUMIN 3.7 gm/dL (3.5-5.0); BILIRUBIN,TOTAL 0.8 mg/dL (0.0-1.0); CALCIUM 9.4 mg/dL (8.4-10.2); CREATININE, serum 0.58 mg/dL (0.52-1.25); POTASSIUM 3.4 mmol/L (3.4-5.0); TOTAL PROTEIN 6.8 gm/dL (6.4-8.2)
[2017-08-07 08:59] LABS: VANCOMYCIN TROUGH 17.23 ug/mL (7.00-20.00)
[2017-08-07 10:51] LABS: ANISOCYTOSIS 1+; BAND 32 % (0-10); LYMPHOCYTE 7 % (20.0-51.0); MYELOCYTE 2 % (0-0); NEUTROPHILS 59 % (42.0-75.2); PLATELET ESTIMATE NORMAL (NORMAL); TOTAL CELLS COUNTED 100
[2017-08-07 10:52] LABS: HYPOCHROMIA 1+
[2017-08-08 00:15] VITALS: BP 118/69; PULSE 71; TEMP 97.7
[2017-08-08 05:05] VITALS: BP 134/67; PULSE 63; TEMP 99.2
[2017-08-08 05:28] LABS: MEAN CELL VOLUME 93 fl (80.0-100.0); MEAN CORPUSCULAR HGB CONC 31 g/dl (33.0-37.0); MEAN PLATELET VOLUME 10.4 fl (7.4-10.4); PLATELET COUNT 200 K/mm3 (130-400); RED BLOOD COUNT 2.99 M/mm3 (4.10-5.30); WHITE BLOOD COUNT 8.7 K/mm3 (4.8-10.8)
[2017-08-08 05:31] LABS: ADD PATHOLOGY DIFF REVIEW NO; HEMATOCRIT 27.7 % (37.0-47.0); HEMOGLOBIN 8.7 g/dl (12.5-16.0); MEAN CORPUSCULAR HEMOGLOBIN 29 pg (27.0-31.0)
[2017-08-08 05:57] LABS: ADJUSTED CALCIUM 9.8 mg/dL (8.4-10.2); ALBUMIN 3.3 gm/dL (3.5-5.0); BILIRUBIN,TOTAL 0.8 mg/dL (0.0-1.0); CALCIUM 9.2 mg/dL (8.4-10.2); CREATININE, serum 0.79 mg/dL (0.52-1.25); POTASSIUM 4.1 mmol/L (3.4-5.0); TOTAL PROTEIN 6.1 gm/dL (6.4-8.2)
[2017-08-08 06:00] LABS: TROPONIN-I 0.016 ng/mL (0.000-0.034)
[2017-08-08 06:20] LABS: BAND 16 % (0-10); EOSINOPHIL 4 % (0-4); LYMPHOCYTE 4 % (20.0-51.0); NEUTROPHILS 71 % (42.0-75.2); TOTAL CELLS COUNTED 100
[2017-08-08 09:38] VITALS: BP 164/89; PULSE 63; TEMP 97.9
[2017-08-08 13:50] VITALS: BP 123/68; PULSE 63; TEMP 98.1
[2017-08-08 18:17] VITALS: BP 173/95; PULSE 64; TEMP 98.2
[2017-08-08 21:55] VITALS: BP 129/72; PULSE 64; TEMP 98.5
[2017-08-09] VITALS (9 sets, daily range): BP systolic 77–138; BP diastolic 39–90; PULSE 58–92; TEMP 97.2–98.5
[2017-08-09 07:07] LABS: CALCIUM 9.7 mg/dL (8.4-10.2); CREATININE, serum 0.79 mg/dL (0.52-1.25); MAGNESIUM 1.6 mg/dL (1.6-2.3); PHOSPHOROUS 5.1 mg/dL (2.5-4.5); POTASSIUM 4.1 mmol/L (3.4-5.0)
[2017-08-10 05:36] VITALS: BP 124/63; PULSE 62; TEMP 97.5
[2017-08-10 07:22] LABS: MEAN CELL VOLUME 93 fl (80.0-100.0); MEAN CORPUSCULAR HGB CONC 31 g/dl (33.0-37.0); MEAN PLATELET VOLUME 10.7 fl (7.4-10.4); PLATELET COUNT 183 K/mm3 (130-400); RED BLOOD COUNT 2.93 M/mm3 (4.10-5.30); WHITE BLOOD COUNT 7.5 K/mm3 (4.8-10.8)
[2017-08-10 07:24] LABS: HEMATOCRIT 27.1 % (37.0-47.0); HEMOGLOBIN 8.4 g/dl (12.5-16.0); MEAN CORPUSCULAR HEMOGLOBIN 29 pg (27.0-31.0)
[2017-08-10 07:25] LABS: ADD PATHOLOGY DIFF REVIEW NO
[2017-08-10] MEDS ORDERED: IPRATROPIUM BROM3 M1 IH (07:43)
[2017-08-10] MEDS ORDERED: GICOCKTAIL PO (07:43)
[2017-08-10] MEDS ORDERED: IMDUR 30MG30 MG/TAB PO (07:45)
[2017-08-10] MEDS ORDERED: ZEBETA 5MG5 MG PO (07:46)
[2017-08-10] MEDS ORDERED: NEURONTIN100 MG/CAP PO (07:49)
[2017-08-10] MEDS ORDERED: CARAFATE S1 GM/10 ML PO (07:49)
[2017-08-10 07:51] LABS: CALCIUM 8.4 mg/dL (8.4-10.2); CREATININE, serum 0.99 mg/dL (0.52-1.25); POTASSIUM 3.5 mmol/L (3.4-5.0)
[2017-08-10] MEDS ORDERED: ULTRAM 50MG TAB50 MG PO (07:51)
[2017-08-10] MEDS ORDERED: NOVOLOG FLEX100 U/ML SQ (07:58)
[2017-08-10 08:13] LABS: BAND 19 % (0-10); EOSINOPHIL 4 % (0-4); LYMPHOCYTE 14 % (20.0-51.0); NEUTROPHILS 63 % (42.0-75.2); PLATELET ESTIMATE NORMAL (NORMAL); TOTAL CELLS COUNTED 100
[2017-08-10 09:22] VITALS: BP 119/67; PULSE 66; TEMP 98.7
[2017-08-10 13:53] VITALS: BP 129/63; PULSE 75; TEMP 97.7
[2017-08-10 17:58] VITALS: BP 112/63; PULSE 77; TEMP 99.3
[2017-08-10 21:41] VITALS: BP 97/48; PULSE 73; TEMP 98.4
[2017-08-11] VITALS (12 sets, daily range): BP systolic 105–140; BP diastolic 44–81; PULSE 67–118; TEMP 97.9–98.7
[2017-08-11 07:32] LABS: MEAN CELL VOLUME 94 fl (80.0-100.0); MEAN CORPUSCULAR HGB CONC 31 g/dl (33.0-37.0); MEAN PLATELET VOLUME 10.9 fl (7.4-10.4); PLATELET COUNT 186 K/mm3 (130-400); RED BLOOD COUNT 2.93 M/mm3 (4.10-5.30); WHITE BLOOD COUNT 5.7 K/mm3 (4.8-10.8)
[2017-08-11 07:37] LABS: HEMATOCRIT 27.4 % (37.0-47.0); HEMOGLOBIN 8.5 g/dl (12.5-16.0); MEAN CORPUSCULAR HEMOGLOBIN 29 pg (27.0-31.0)
[2017-08-11 07:38] LABS: ADD PATHOLOGY DIFF REVIEW NO
[2017-08-11 07:46] LABS: ADJUSTED CALCIUM 9.4 mg/dL (8.4-10.2); ALBUMIN 3.1 gm/dL (3.5-5.0); BILIRUBIN,TOTAL 0.6 mg/dL (0.0-1.0); CALCIUM 8.7 mg/dL (8.4-10.2); CREATININE, serum 0.68 mg/dL (0.52-1.25); MAGNESIUM 1.8 mg/dL (1.6-2.3); POTASSIUM 3.6 mmol/L (3.4-5.0)
[2017-08-11 07:53] LABS: PRE ALBUMIN 23.1 mg/dL (17.6-36.0)
[2017-08-11 08:53] LABS: ANISOCYTOSIS 1+; BAND 27 % (0-10); BASOPHIL 1 % (0-2); LYMPHOCYTE 14 % (20.0-51.0); NEUTROPHILS 58 % (42.0-75.2); PLATELET ESTIMATE NORMAL (NORMAL); TOTAL CELLS COUNTED 100
[2017-08-12 02:00] VITALS: BP 121/65; PULSE 65; TEMP 97.7
[2017-08-12 06:00] VITALS: BP 146/59; PULSE 63; TEMP 96
[2017-08-12 07:40] LABS: MEAN CELL VOLUME 93 fl (80.0-100.0); MEAN CORPUSCULAR HGB CONC 31 g/dl (33.0-37.0); MEAN PLATELET VOLUME 10.7 fl (7.4-10.4); PLATELET COUNT 169 K/mm3 (130-400); RED BLOOD COUNT 2.83 M/mm3 (4.10-5.30); WHITE BLOOD COUNT 4.5 K/mm3 (4.8-10.8)
[2017-08-12 07:43] LABS: HEMATOCRIT 26.3 % (37.0-47.0); HEMOGLOBIN 8.2 g/dl (12.5-16.0); MEAN CORPUSCULAR HEMOGLOBIN 29 pg (27.0-31.0)
[2017-08-12 07:44] LABS: ADD PATHOLOGY DIFF REVIEW NO
[2017-08-12 07:46] LABS: CALCIUM 8.7 mg/dL (8.4-10.2); CREATININE, serum 0.65 mg/dL (0.52-1.25); MAGNESIUM 1.8 mg/dL (1.6-2.3); POTASSIUM 4.4 mmol/L (3.4-5.0)
[2017-08-12 08:55] LABS: ANISOCYTOSIS 1+; BAND 17 % (0-10); LYMPHOCYTE 13 % (20.0-51.0); METAMYELOCYTE 1 % (0-0); NEUTROPHILS 69 % (42.0-75.2); PLATELET ESTIMATE NORMAL (NORMAL); TOTAL CELLS COUNTED 100
[2017-08-12 10:54] VITALS: BP 147/83; PULSE 76; TEMP 98.1
[2017-08-12] MEDS ORDERED: AMOXICILLIN 8751 TAB PO (14:16)
[2017-08-12 14:17] VITALS: BP 171/87; PULSE 78; TEMP 97.6
[2017-08-12] MEDS ORDERED: PACERONE200 MG PEG (14:18)
[2017-08-12] MEDS ORDERED: ASPIRIN 81M81 MG/TA2 PO (14:19)
[2017-08-12] MEDS ORDERED: ZESTRIL 10MG10 MG PO (14:19)
== END 2017-08-12 15:30 | DRG 907 ==
LOC: MEDICAL 14:34 → SURG 14:34 → ICU 14:34 → MEDICAL 16:00 → ICU 07-26 10:21 → SURG 07-31 13:19
PROVIDERS: Internal Medicine; Internal Medicine Cardiovascular Disease; Internal Medicine Gastroenterology; Internal Medicine Pulmonary Disease; Nurse Practitioner Family; Physician Assistant; Registered Nurse; Surgery
PROC: 0DJD8ZZ Inspection of Lower Intestinal Tract, Via Natural or Artificial Opening Endoscopic (ICD-10-PCS; 2017-07-26)
PROC: 0DTN0ZZ Resection of Sigmoid Colon, Open Approach (ICD-10-PCS; 2017-07-26)
PROC: 0D1B0Z4 Bypass Ileum to Cutaneous, Open Approach (ICD-10-PCS; 2017-07-26)
PROC: 5A1945Z Respiratory Ventilation, 24-96 Consecutive Hours (ICD-10-PCS; principal; 2017-07-26 08:00)
PROC: 0DB28ZX Excision of Middle Esophagus, Via Natural or Artificial Opening Endoscopic, Diagnostic (ICD-10-PCS; 2017-08-11)
DX: K91.71 Accidental puncture and laceration of a digestive system organ or structure during a digestive system procedure (principal); K22.11 Ulcer of esophagus with bleeding; I50.33 Acute on chronic diastolic (congestive) heart failure; J96.01 Acute respiratory failure with hypoxia; J69.0 Pneumonitis due to inhalation of food and vomit; I48.92 Unspecified atrial flutter; E87.1 Hypo-osmolality and hyponatremia; E87.2 Acidosis; E44.0 Moderate protein-calorie malnutrition; K91.31 Postprocedural partial intestinal obstruction; R18.8 Other ascites; K52.9 Noninfective gastroenteritis and colitis, unspecified; I11.0 Hypertensive heart disease with heart failure; E11.9 Type 2 diabetes mellitus without complications; I16.0 Hypertensive urgency; I25.10 Atherosclerotic heart disease of native coronary artery without angina pectoris; Z95.5 Presence of coronary angioplasty implant and graft; J44.9 Chronic obstructive pulmonary disease, unspecified; M06.9 Rheumatoid arthritis, unspecified; I48.91 Unspecified atrial fibrillation; E87.6 Hypokalemia; E83.42 Hypomagnesemia; K21.0 Gastro-esophageal reflux disease with esophagitis; D50.0 Iron deficiency anemia secondary to blood loss (chronic)
CPT/HCPCS: 99222-AI; 99232-AI; 99233-AI; 99239; A4315; A9284; B4178; C1751; C9113; J0282; J0330; J0360; J0610; J1170; J1450; J1644; J1650; J1815; J1940; J1956; J2250; J2370; J2405; J2543; J2704; J2765; J3010; J3370; J3475; J3480; J7030; J7050; J7060; J7120; J7131; P9016; P9035; P9047; Q9967

== ENCOUNTER 2017-08-19 10:58 | Emergency (ER) | payer MEDICARE, OTHER ==
[~2017-08-19] VITALS: Ht 154.9 cm; Wt 81.8 kg
[~2017-08-19 10:58] MED LIST changes: +AMOXICILLIN 8751 TAB PO; +CARAFATE S1 GM/10 ML PO; +GICOCKTAIL PO; +IPRATROPIUM BROM3 M1 IH; +NEURONTIN100 MG/CAP PO; +NOVOLOG FLEX100 U/ML SQ; +PACERONE200 MG PEG; +ZEBETA 5MG5 MG PO; +ZESTRIL 10MG10 MG PO
[2017-08-19 11:01] VITALS: TEMP 97.8
[2017-08-19] MEDS ORDERED: ZEBETA10 MG PO (11:09)
[2017-08-19 11:41] LABS: BASO # 0.1 (0.0-0.2); BASO % 0.8 % (0.0-2.0); EOS # 0.2 (0.0-0.7); EOS % 2.1 % (0-4.0); GRAN # 6.9 (1.4-6.5); GRAN % 76.9 % (42.2-75.2); LYMPH # 1.1 (1.2-3.4); LYMPH % 12.4 % (20.0-51.0); MEAN CELL VOLUME 90 fl (80.0-100.0); MEAN CORPUSCULAR HGB CONC 32 g/dl (33.0-37.0); MEAN PLATELET VOLUME 9.5 fl (7.4-10.4); MONO # 0.6 (0.1-0.6); MONO % 6.7 % (1.7-9.3); PLATELET COUNT 185 K/mm3 (130-400); RED BLOOD COUNT 3.45 M/mm3 (4.10-5.30)
[2017-08-19 11:43] LABS: HEMATOCRIT 31.2 % (37.0-47.0); HEMOGLOBIN 9.9 g/dl (12.5-16.0); MEAN CORPUSCULAR HEMOGLOBIN 29 pg (27.0-31.0)
[2017-08-19 11:47] LABS: INR 1.2 (0.8-3.0); PROTHROMBIN TIME 13.6 SECONDS (9.7-12.8)
[2017-08-19 11:49] LABS: PARTIAL THROMBOPLASTIN TIME 37.2 SECONDS (26.0-37.0)
[2017-08-19 11:55] LABS: ADJUSTED CALCIUM 9.6 mg/dL (8.4-10.2); ALBUMIN 3.1 gm/dL (3.5-5.0); BILIRUBIN,TOTAL 1.1 mg/dL (0.0-1.0); CALCIUM 8.9 mg/dL (8.4-10.2); CREATININE, serum 0.66 mg/dL (0.52-1.25); POTASSIUM 4.1 mmol/L (3.4-5.0); TOTAL PROTEIN 6.1 gm/dL (6.4-8.2)
[2017-08-19 14:52] VITALS: BP 153/62; PULSE 72
== END 2017-08-19 14:53 | disposition home or self-care (01) ==
LOC: COL.ER 10:58
PROVIDERS: Emergency Medicine
DX: K92.2 Gastrointestinal hemorrhage, unspecified (principal); I48.91 Unspecified atrial fibrillation; I25.10 Atherosclerotic heart disease of native coronary artery without angina pectoris; I10 Essential (primary) hypertension; E11.9 Type 2 diabetes mellitus without complications; J44.9 Chronic obstructive pulmonary disease, unspecified; E78.5 Hyperlipidemia, unspecified; Z86.73 Personal history of transient ischemic attack (TIA), and cerebral infarction without residual deficits; Z90.49 Acquired absence of other specified parts of digestive tract; Z79.82 Long term (current) use of aspirin; Z98.890 Other specified postprocedural states
CPT/HCPCS: J7030; Q9967

== ENCOUNTER → 2017-08-30 | Outpatient (CLI) | payer MEDICARE, OTHER ==
[~2017-08-30] MED LIST changes: +INVANZ INJ1 G/VIAL IJ; +NOVOLOG FLEX100 U/ML; +OMNICEF 300MG300 MG PO; +PACERONE200 MG PO; +ZEBETA10 MG PO
== END ==
LOC: COL.RAD 13:43
DX: R13.12 Dysphagia, oropharyngeal phase (principal)
CPT/HCPCS: G8996-GN; G8997-GN; G8998-GN

== ENCOUNTER → 2017-09-05 | Outpatient (REF) ==
[~2017-09-05] MED LIST changes: -INVANZ INJ1 G/VIAL IJ; -NOVOLOG FLEX100 U/ML; -OMNICEF 300MG300 MG PO; -PACERONE200 MG PO
[2017-09-05 07:58] LABS: BASO # 0.1 (0.0-0.2); BASO % 1.1 % (0.0-2.0); EOS # 0.2 (0.0-0.7); EOS % 3.2 % (0-4.0); GRAN # 3.7 (1.4-6.5); GRAN % 70.4 % (42.2-75.2); LYMPH # 0.9 (1.2-3.4); LYMPH % 17.4 % (20.0-51.0); MEAN CELL VOLUME 91 fl (80.0-100.0); MEAN CORPUSCULAR HGB CONC 32 g/dl (33.0-37.0); MEAN PLATELET VOLUME 9.6 fl (7.4-10.4); MONO # 0.4 (0.1-0.6); PLATELET COUNT 159 K/mm3 (130-400); RED BLOOD COUNT 3.38 M/mm3 (4.10-5.30); WHITE BLOOD COUNT 5.3 K/mm3 (4.8-10.8)
[2017-09-05 08:00] LABS: HEMATOCRIT 30.7 % (37.0-47.0); HEMOGLOBIN 9.7 g/dl (12.5-16.0); MEAN CORPUSCULAR HEMOGLOBIN 29 pg (27.0-31.0)
[2017-09-05 08:08] LABS: CALCIUM 9.1 mg/dL (8.4-10.2); CREATININE, serum 0.78 mg/dL (0.52-1.25); POTASSIUM 4.5 mmol/L (3.4-5.0)
== END ==
LOC: ZLAB.STJ 07:46
DX: N17.8 Other acute kidney failure (principal)

== ENCOUNTER → 2017-09-15 | Outpatient (REF) ==
[2017-09-15 17:42] LABS: COLLECTION METHOD CLEAN CATCH
[2017-09-15 17:56] LABS: MUCOUS Present /lpf; PH 5 (5-8); SQUAMOUS EPITHELIAL 0-2 /hpf; URINE APPEARANCE Turbid; URINE BACTERIA Many /hpf; URINE BILIRUBIN Negative (NEGATIVE); URINE BLOOD 1+ (NEGATIVE); URINE COLOR Yellow; URINE GLUCOSE Negative (NEGATIVE); URINE KETONE Negative (NEGATIVE); URINE LEUKOCYTE ESTERASE 3+ (NEGATIVE); URINE PROTEIN(semi-quant) 1+ (NEGATIVE); URINE RBC >50 /hpf; URINE UROBILINOGEN Negative (NEGATIVE); URINE WBC >50 /hpf
== END ==
LOC: ZLAB.STJ 17:41
PROVIDERS: Urology
DX: R82.90 Unspecified abnormal findings in urine (principal)

== ENCOUNTER → 2017-09-28 | Outpatient (CLI) | payer MEDICARE, OTHER | LOC: COL.RAD 10:00 | DX: Z01.818 Encounter for other preprocedural examination (principal); K56.699 Other intestinal obstruction unspecified as to partial versus complete obstruction; Z93.2 Ileostomy status ==

== ENCOUNTER 2017-10-11 13:10 | Inpatient (IN) | payer MEDICARE, OTHER ==
[2017-10-13] VITALS (11 sets, daily range): BP systolic 127–159; BP diastolic 61–83; PULSE 56–77; TEMP 98–98.3
[2017-10-13 12:59] LABS: BASO % 0.8 % (0.0-2.0); EOS # 0.1 (0.0-0.7); EOS % 2.9 % (0-4.0); GRAN # 3.3 (1.4-6.5); GRAN % 68.3 % (42.2-75.2); MEAN CELL VOLUME 85 fl (80.0-100.0); MEAN CORPUSCULAR HGB CONC 31 g/dl (33.0-37.0); MEAN PLATELET VOLUME 10.2 fl (7.4-10.4); MONO # 0.4 (0.1-0.6); MONO % 7.6 % (1.7-9.3); PLATELET COUNT 143 K/mm3 (130-400); RED BLOOD COUNT 3.49 M/mm3 (4.10-5.30); WHITE BLOOD COUNT 4.8 K/mm3 (4.8-10.8)
[2017-10-13 13:03] LABS: HEMATOCRIT 29.5 % (37.0-47.0); HEMOGLOBIN 9.2 g/dl (12.5-16.0); MEAN CORPUSCULAR HEMOGLOBIN 26 pg (27.0-31.0)
[2017-10-13 13:04] LABS: INR 1.2 (0.8-3.0); PROTHROMBIN TIME 13.5 SECONDS (9.7-12.8)
[2017-10-13 13:06] LABS: CALCIUM 8.7 mg/dL (8.4-10.2); CREATININE, serum 0.82 mg/dL (0.52-1.25); POTASSIUM 4.1 mmol/L (3.4-5.0)
[2017-10-13] MEDS ORDERED: NEURONTIN100 MG/CAP PO (13:19)
[2017-10-13] MEDS ORDERED: PACERONE200 MG PO (13:36)
[2017-10-13] MEDS ORDERED: ZEBETA10 MG PO (13:37)
[2017-10-13] MEDS ORDERED: IMDUR 30MG30 MG/TAB PO (13:40)
[2017-10-13] MEDS ORDERED: NOVOLOG FLEX100 U/ML (13:44)
[2017-10-13] MEDS ORDERED: LIPITOR 80MG80 MG PO (13:49)
[2017-10-13] MEDS ORDERED: ZOFRAN 4MG T4 MG/TAB PO (13:50)
[2017-10-13] MEDS ORDERED: SINGULAIR 110 MG/TAB PO (13:50)
[2017-10-13] MEDS ORDERED: INVANZ INJ1 G/VIAL IJ (13:51)
[2017-10-14 01:53] VITALS: BP 127/64; PULSE 78; TEMP 99.2
[2017-10-14 04:48] VITALS: BP 130/58; PULSE 72; TEMP 98.2
[2017-10-14 07:19] LABS: BASO # 0.1 (0.0-0.2); BASO % 0.9 % (0.0-2.0); EOS % 0.4 % (0-4.0); GRAN # 4.6 (1.4-6.5); GRAN % 83.1 % (42.2-75.2); LYMPH # 0.5 (1.2-3.4); LYMPH % 9.5 % (20.0-51.0); MEAN CELL VOLUME 85 fl (80.0-100.0); MEAN CORPUSCULAR HGB CONC 31 g/dl (33.0-37.0); MEAN PLATELET VOLUME 10.2 fl (7.4-10.4); MONO # 0.3 (0.1-0.6); MONO % 5.7 % (1.7-9.3); PLATELET COUNT 132 K/mm3 (130-400); WHITE BLOOD COUNT 5.6 K/mm3 (4.8-10.8)
[2017-10-14 07:22] LABS: HEMATOCRIT 27.9 % (37.0-47.0); HEMOGLOBIN 8.7 g/dl (12.5-16.0); MEAN CORPUSCULAR HEMOGLOBIN 26 pg (27.0-31.0)
[2017-10-14 07:29] LABS: ALBUMIN 2.7 gm/dL (3.5-5.0); CALCIUM 8.3 mg/dL (8.4-10.2); CREATININE, serum 0.73 mg/dL (0.52-1.25); MAGNESIUM 1.1 mg/dL (1.6-2.3); PHOSPHOROUS 4.8 mg/dL (2.5-4.5); POTASSIUM 3.9 mmol/L (3.4-5.0)
[2017-10-14 10:19] VITALS: BP 143/71; PULSE 72; TEMP 98.4
[2017-10-14 14:07] VITALS: BP 141/64; PULSE 67; TEMP 98.5
[2017-10-14 18:19] VITALS: BP 158/70; PULSE 69; TEMP 98.4
[2017-10-14 21:11] VITALS: BP 136/64; PULSE 70; TEMP 99
[2017-10-15 02:06] VITALS: BP 134/67; PULSE 72; TEMP 98.3
[2017-10-15 06:12] LABS: BASO % 0.6 % (0.0-2.0); EOS # 0.1 (0.0-0.7); EOS % 0.9 % (0-4.0); GRAN # 5.2 (1.4-6.5); GRAN % 80.7 % (42.2-75.2); LYMPH # 0.6 (1.2-3.4); LYMPH % 9.8 % (20.0-51.0); MEAN CELL VOLUME 84 fl (80.0-100.0); MEAN CORPUSCULAR HGB CONC 32 g/dl (33.0-37.0); MEAN PLATELET VOLUME 10.2 fl (7.4-10.4); MONO # 0.5 (0.1-0.6); MONO % 7.5 % (1.7-9.3); PLATELET COUNT 135 K/mm3 (130-400); RED BLOOD COUNT 3.26 M/mm3 (4.10-5.30); WHITE BLOOD COUNT 6.4 K/mm3 (4.8-10.8)
[2017-10-15 06:15] LABS: HEMATOCRIT 27.4 % (37.0-47.0); HEMOGLOBIN 8.7 g/dl (12.5-16.0); MEAN CORPUSCULAR HEMOGLOBIN 27 pg (27.0-31.0)
[2017-10-15 06:21] VITALS: BP 127/56; PULSE 72; TEMP 98.4
[2017-10-15 06:23] LABS: ALBUMIN 2.7 gm/dL (3.5-5.0); CALCIUM 8.4 mg/dL (8.4-10.2); CREATININE, serum 0.76 mg/dL (0.52-1.25); PHOSPHOROUS 4.1 mg/dL (2.5-4.5); POTASSIUM 3.5 mmol/L (3.4-5.0)
[2017-10-15 09:21] VITALS: BP 151/78; PULSE 65; TEMP 97.7
[2017-10-15 14:12] VITALS: BP 139/69; PULSE 7; TEMP 98.4
[2017-10-15 21:24] VITALS: BP 143/68; PULSE 69; TEMP 97.8
[2017-10-16 06:28] VITALS: BP 137/64; PULSE 64; TEMP 97.6
[2017-10-16 06:51] LABS: BASO % 0.6 % (0.0-2.0); EOS # 0.1 (0.0-0.7); EOS % 1.4 % (0-4.0); GRAN # 5.3 (1.4-6.5); GRAN % 75.4 % (42.2-75.2); LYMPH # 0.9 (1.2-3.4); LYMPH % 12.2 % (20.0-51.0); MEAN CELL VOLUME 84 fl (80.0-100.0); MEAN CORPUSCULAR HGB CONC 31 g/dl (33.0-37.0); MEAN PLATELET VOLUME 10.3 fl (7.4-10.4); MONO # 0.7 (0.1-0.6); MONO % 10.1 % (1.7-9.3); PLATELET COUNT 144 K/mm3 (130-400); RED BLOOD COUNT 3.08 M/mm3 (4.10-5.30); WHITE BLOOD COUNT 7.1 K/mm3 (4.8-10.8)
[2017-10-16 06:57] LABS: HEMATOCRIT 25.8 % (37.0-47.0); HEMOGLOBIN 8.1 g/dl (12.5-16.0); MEAN CORPUSCULAR HEMOGLOBIN 26 pg (27.0-31.0)
[2017-10-16 06:58] LABS: ALBUMIN 2.5 gm/dL (3.5-5.0); CALCIUM 8.3 mg/dL (8.4-10.2); CREATININE, serum 0.72 mg/dL (0.52-1.25); PHOSPHOROUS 3.6 mg/dL (2.5-4.5); POTASSIUM 3.4 mmol/L (3.4-5.0)
[2017-10-16] MEDS ORDERED: OMNICEF 300MG300 MG PO (08:51)
[2017-10-16 09:33] VITALS: BP 140/76; PULSE 64; TEMP 98.2
[2017-10-16 11:43] VITALS: BP 140/76; PULSE 64; TEMP 98.2
== END 2017-10-16 11:54 | DRG 330 ==
LOC: SURG 10-13 11:48 → INPTSU 10-13 11:48 → SURG 10-13 14:00
PROVIDERS: Registered Nurse; Surgery
PROC: 0DU Gastrointestinal System, Supplement (ICD-10-PCS; 2017-10-13)
PROC: 0DSB0ZZ Reposition Ileum, Open Approach (ICD-10-PCS; principal; 2017-10-13 14:00)
DX: Z43.2 Encounter for attention to ileostomy (principal); N39.0 Urinary tract infection, site not specified; E87.1 Hypo-osmolality and hyponatremia; M06.9 Rheumatoid arthritis, unspecified; I25.10 Atherosclerotic heart disease of native coronary artery without angina pectoris; G20 Parkinson's disease; Z95.5 Presence of coronary angioplasty implant and graft; D64.9 Anemia, unspecified; R73.9 Hyperglycemia, unspecified
CPT/HCPCS: A9284; C1781; J0360; J0694; J1170; J1644; J1650; J1815; J2370; J2405; J2704; J3010; J7030; J7060; J7120

== ENCOUNTER → 2017-10-12 | Outpatient (REF) ==
[~2017-10-12] MED LIST changes: +INVANZ INJ1 G/VIAL IJ; +NOVOLOG FLEX100 U/ML; +PACERONE200 MG PO
[2017-10-12 14:22] LABS: COLLECTION METHOD CATHETER
[2017-10-12 14:29] LABS: PH 5 (5-8); SQUAMOUS EPITHELIAL None Seen /hpf; URINE APPEARANCE Cloudy; URINE BACTERIA Many /hpf; URINE BILIRUBIN Negative (NEGATIVE); URINE BLOOD Negative (NEGATIVE); URINE COLOR Yellow; URINE GLUCOSE Negative (NEGATIVE); URINE KETONE Negative (NEGATIVE); URINE LEUKOCYTE ESTERASE 2+ (NEGATIVE); URINE PROTEIN(semi-quant) 2+ (NEGATIVE); URINE UROBILINOGEN Negative (NEGATIVE); URINE WBC >50 /hpf
== END ==
LOC: ZLAB.STJ 14:18
PROVIDERS: Urology
DX: N17.8 Other acute kidney failure (principal); R82.79 Other abnormal findings on microbiological examination of urine

== ENCOUNTER → 2017-11-15 | Outpatient (REF) ==
[~2017-11-15] MED LIST changes: +OMNICEF 300MG300 MG PO
[2017-11-15 10:11] LABS: CALCIUM 8.6 mg/dL (8.4-10.2); CREATININE, serum 0.77 mg/dL (0.52-1.25); POTASSIUM 3.3 mmol/L (3.4-5.0)
== END ==
LOC: ZLAB.STJ 09:42
PROVIDERS: Internal Medicine
DX: K63.1 Perforation of intestine (nontraumatic) (principal)

== ENCOUNTER → 2018-04-18 | Outpatient (CLI) | payer MEDICARE, OTHER | LOC: COL.RAD 08:06 | DX: R31.1 Benign essential microscopic hematuria (principal) ==

== ENCOUNTER 2018-05-02 07:07 | Emergency (ER) | payer MEDICARE, OTHER ==
[~2018-05-02] VITALS: Ht 154.9 cm; Wt 96.4 kg
[2018-05-02 07:10] VITALS: TEMP 97.5
[2018-05-02] MEDS ORDERED: BYSTOLIC10 MG PO (07:29)
[2018-05-02] MEDS ORDERED: CALCIUM 600MG+D1 TAB PO (07:30)
[2018-05-02] MEDS ORDERED: CRANBERRY500 M3 PO (07:31)
[2018-05-02] MEDS ORDERED: FOLIC ACID 11 MG/TA1 PO (07:32)
[2018-05-02] MEDS ORDERED: MELATONIN5 M1 PO (07:33)
[2018-05-02 08:41] LABS: BASO # 0.1 (0.0-0.2); EOS % 0.8 % (0-4.0); GRAN # 3.6 (1.4-6.5); GRAN % 72.4 % (42.2-75.2); HEMOGLOBIN 12.3 g/dl (12.5-16.0); LYMPH # 0.9 (1.2-3.4); LYMPH % 17.1 % (20.0-51.0); MEAN CELL VOLUME 88 fl (80.0-100.0); MEAN CORPUSCULAR HEMOGLOBIN 30 pg (27.0-31.0); MEAN CORPUSCULAR HGB CONC 34 g/dl (33.0-37.0); MEAN PLATELET VOLUME 10.1 fl (7.4-10.4); MONO # 0.4 (0.1-0.6); MONO % 8.3 % (1.7-9.3); PLATELET COUNT 114 K/mm3 (130-400); RED BLOOD COUNT 4.13 M/mm3 (4.10-5.30)
[2018-05-02 08:44] LABS: PROTHROMBIN TIME 11.5 SECONDS (9.7-12.8)
[2018-05-02 08:46] LABS: HEMATOCRIT 36.5 % (37.0-47.0); PARTIAL THROMBOPLASTIN TIME 36.9 SECONDS (26.0-37.0)
[2018-05-02 08:48] LABS: ALBUMIN 3.8 gm/dL (3.5-5.0); BILIRUBIN,TOTAL 1.2 mg/dL (0.0-1.0); CALCIUM 9.2 mg/dL (8.4-10.2); CREATININE, serum 0.88 mg/dL (0.52-1.25); MAGNESIUM 1.8 mg/dL (1.6-2.3); PHOSPHOROUS 3.9 mg/dL (2.5-4.5); POTASSIUM 3.7 mmol/L (3.4-5.0); TOTAL PROTEIN 6.7 gm/dL (6.4-8.2)
[2018-05-02 08:52] LABS: COLLECTION METHOD CLEAN CATCH
[2018-05-02 09:00] LABS: PH 8 (5-8); SQUAMOUS EPITHELIAL None Seen /hpf; URINE APPEARANCE Clear; URINE BACTERIA None Seen /hpf; URINE BILIRUBIN Negative (NEGATIVE); URINE BLOOD Negative (NEGATIVE); URINE COLOR Yellow; URINE GLUCOSE Negative (NEGATIVE); URINE KETONE Negative (NEGATIVE); URINE LEUKOCYTE ESTERASE Negative (NEGATIVE); URINE NITRATE Negative (NEGATIVE); URINE PROTEIN(semi-quant) Negative (NEGATIVE); URINE RBC None Seen /hpf; URINE UROBILINOGEN Negative (NEGATIVE)
[2018-05-02 10:19] VITALS: BP 185/90; PULSE 51
== END 2018-05-02 10:10 | disposition home or self-care (01) ==
LOC: COL.ER 07:07
PROVIDERS: Emergency Medicine
DX: S80.12XA Contusion of left lower leg, initial encounter (principal); G89.29 Other chronic pain; M54.5 Low back pain; I48.91 Unspecified atrial fibrillation; I25.10 Atherosclerotic heart disease of native coronary artery without angina pectoris; Z79.82 Long term (current) use of aspirin; Z79.51 Long term (current) use of inhaled steroids; W01.0XXA Fall on same level from slipping, tripping and stumbling without subsequent striking against object, initial encounter; Y92.009 Unspecified place in unspecified non-institutional (private) residence as the place of occurrence of the external cause

== ENCOUNTER 2019-06-17 06:26 | Inpatient (IN) | payer MEDICARE, OTHER ==
[2019-06-17] VITALS (8 sets, daily range): BP systolic 138–175; BP diastolic 64–115; PULSE 57–76; TEMP 97.5–97.9
[~2019-06-17] VITALS: Ht 154.9 cm; Wt 106.2 kg
[~2019-06-17 06:26] MED LIST changes: +CRANBERRY500 M3 PO
[2019-06-17 07:30] LABS: BASO # 0.1 (0.0-0.2); EOS # 0.1 (0.0-0.7); EOS % 1.5 % (0-4.0); GRAN # 5.1 (1.4-6.5); GRAN % 76.4 % (42.2-75.2); HEMATOCRIT 39.6 % (37.0-47.0); HEMOGLOBIN 13.1 g/dl (12.5-16.0); LYMPH # 0.9 (1.2-3.4); LYMPH % 12.7 % (20.0-51.0); MEAN CELL VOLUME 93 fl (80.0-100.0); MEAN CORPUSCULAR HEMOGLOBIN 31 pg (27.0-31.0); MEAN CORPUSCULAR HGB CONC 33 g/dl (33.0-37.0); MEAN PLATELET VOLUME 10.1 fl (7.4-10.4); MONO # 0.5 (0.1-0.6); MONO % 7.8 % (1.7-9.3); PLATELET COUNT 119 K/mm3 (130-400); RED BLOOD COUNT 4.28 M/mm3 (4.10-5.30); REDCELL DISTRIBUTION WIDTH-CV 14.5 % (11.5-14.5)
[2019-06-17 07:35] LABS: PROTHROMBIN TIME 11.6 SECONDS (9.7-12.8)
[2019-06-17 07:37] LABS: PARTIAL THROMBOPLASTIN TIME 31.3 SECONDS (26.0-37.0)
[2019-06-17 07:45] LABS: ALANINE AMINOTRANSFERASE 20 U/L (9-52); ALBUMIN 4.1 gm/dL (3.5-5.0); ALKALINE PHOSPHATASE 82 U/L (50-136); ANION GAP 16 mmol/L (7-16); AST,SGOT 25 U/L (15-37); BILIRUBIN,TOTAL 0.9 mg/dL (0.0-1.0); BLOOD UREA NITROGEN 22 mg/dL (7-17); CALCIUM 9.1 mg/dL (8.4-10.2); CARBON DIOXIDE 23 mmol/L (22-30); CHLORIDE 105 mmol/L (98-107); CREATININE, serum 1.02 (0.52-1.25); GLUCOSE 189 mg/dL (74-106); POTASSIUM 4.4 mmol/L (3.4-5.0); SODIUM 144 mmol/L (137-145); TOTAL PROTEIN 6.7 gm/dL (6.4-8.2)
[2019-06-17 07:59] LABS: TROPONIN-I < 0.012 ng/mL (0.000-0.035)
[2019-06-17] MEDS ORDERED: LIPITOR 40MG TA40 MG PO (08:24)
[2019-06-17] MEDS ORDERED: CEFTIN 250250 MG/TAB PO (08:25)
[2019-06-17] MEDS ORDERED: LASIX 20MG TABL20 MG PO (08:25)
[2019-06-17] MEDS ORDERED: CEFACLOR250 MG PO (08:25)
[2019-06-17] MEDS ORDERED: PRINIVIL40 MG PO (08:26)
[2019-06-17] MEDS ORDERED: KLOR-CON 1010 MEQ PO (08:26)
[2019-06-17] MEDS ORDERED: MIRALAX PA17 GM/Dose PO (08:27)
[2019-06-17] MEDS ORDERED: NYAMYC100000 U/G TP (08:27)
[2019-06-17] MEDS ORDERED: ULTRAM ER100 MG PO (08:28)
--- NOTE | 2019-06-17 10:27 | NUR ---
[facility] SIDE. PT ADVISES THAT SHE HAS CHRONIC BACK PAIN AND GOING FOR SHOTS IN A COUPLE OF WEEKS FOR PAIN. PT ALSO, ADVISES THAT SHE HAS HAD A FACIAL DROOP ON THE LEFT FOR A WHILE NOW. PT STILL FEELS WEAK BUT NOT LIKE SHE WAS. PT A/O X4. NO NEEDS AT THIS TIME, CALL LIGHT WITHIN REACH.
[2019-06-17] MEDS ORDERED: CARAFATE 1GM1 G PO (11:40)
[2019-06-17] MEDS ORDERED: GLUCOPHAGE1000 MG PO (11:42)
--- NOTE | 2019-06-17 18:21 | NUR ---
PT HAD BY SIDE MOST OF DAY. PT HAD NO C/O PAIN OR DISCOMFORT. PT WAS WEAK WHEN SHE FIRST ARRIVED, BUT THROUGH OUT THE DAY THE PATIENT SEEM TO GET STRONG TO WERE SHE CAN PIVOT TRANSFER TO BEDSIDE COMMODE. PT ALSO, WAS ABLE TO TRANSFER ABOUT 10 STEPS TO WHEELCHAIR, WITH ASSIST X2. PT PASSED SWALLOW TEST, AND WAS GIVEN SUPPER AFTER LAST CTA, WHICH SHE DID NOT GET UNTIL ABOUT 1730. CT ADVISES THAT PT IS NOT TO TAKE METFORMEN FOR 48 HOURS, DUE TO THE DYE THAT WAS USED FOR THE CT. PT WAS ADVISED THAT SHE IS NOT TO TAKE METFORMEN FOR 48 HOURS DUE TO THE DYE FROM THE CT THAT SHE RECEIVED AND SHE VERBALIZED UNDERSTANDING. PT'S FACE HAD MORE OF A LEFT SIDED FACIAL DROOP THIS AM, FACIAL DROOP FADE AND NOW SHE JUST HAS A MILD FACIAL DROOP, WHICH PT ADVISES THAT SHE HAS HAD A FACIAL DROOP FOR A LONG TIME. 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 PT IN ROOM WITH FAMILY, DOING WELL AND NO C/O PAIN OR DISCOMFORT AND IS DOING WELL WITH NEURO CHECKS. CALL LIGHT WITHIN REACH.
--- NOTE | 2019-06-17 23:01 | NUR ---
RESTING QUIETLY. NO c/o PAIN. NO c/o N/V. HAND SECOND BUTLER EQUAL. PT ABLE TO STAND AND TRANSFER TO COMMODE WITH ASSIST. PUPILS EQUAL & REACTIVE. PT A&Ox3.
[2019-06-18 03:43] VITALS: BP 146/73; PULSE 60; TEMP 97.9
--- NOTE | 2019-06-18 05:59 | NUR ---
RESTING QUIETLY. NO c/o PAIN. NEURO CHECKS WNL FOR PT, NO CHANGES THIS SHIFT.
[2019-06-18 08:11] LABS: BASO # 0.1 (0.0-0.2); BASO % 1.1 % (0.0-2.0); EOS # 0.1 (0.0-0.7); EOS % 2.4 % (0-4.0); GRAN # 3.1 (1.4-6.5); LYMPH # 0.9 (1.2-3.4); LYMPH % 18.9 % (20.0-51.0); MEAN CELL VOLUME 93 fl (80.0-100.0); MEAN CORPUSCULAR HEMOGLOBIN 31 pg (27.0-31.0); MEAN CORPUSCULAR HGB CONC 33 g/dl (33.0-37.0); MEAN PLATELET VOLUME 10.6 fl (7.4-10.4); MONO # 0.4 (0.1-0.6); MONO % 8.2 % (1.7-9.3); PLATELET COUNT 104 K/mm3 (130-400); RED BLOOD COUNT 3.94 M/mm3 (4.10-5.30); REDCELL DISTRIBUTION WIDTH-CV 14.4 % (11.5-14.5)
[2019-06-18 08:25] LABS: HEMATOCRIT 36.5 % (37.0-47.0)
[2019-06-18 08:32] LABS: CALCIUM 8.4 mg/dL (8.4-10.2); CREATININE, serum 0.75 (0.52-1.25); POTASSIUM 3.6 mmol/L (3.4-5.0)
[2019-06-18 08:54] VITALS: BP 163/61; PULSE 60; TEMP 97.6
--- NOTE | 2019-06-18 11:12 | NUR ---
TRISH met with the pt and pt's to discuss a discharge plan. The pt lives in [place] with her Yung. The pt has a walker and wheelchair she uses around the house and in the community and reports Yung assist her with ADLs as needed. Patient reports he helps her with clothing and getting into the shower. The pt's PCP is Dr. Mittal and [place] [facility] does have advanced directives in the EMR. The pt reports she has had home health services in the past. TRISH provided list of home health agencies from [employer]gov to the pt. TRISH inquired about ordering PT/OT/SP for the pt to Dr. Hamlin. TRISH will continue to follow to assist with any discharge recommendations.
[2019-06-18 11:32] VITALS: BP 178/83; PULSE 70; TEMP 97.4
[2019-06-18 16:16] VITALS: BP 138/87; PULSE 71; TEMP 98.2
--- NOTE | 2019-06-18 18:59 | NUR ---
Pt report given to Reina PACHECO
[2019-06-18 19:26] VITALS: BP 153/78; PULSE 78; TEMP 99
--- NOTE | 2019-06-18 20:40 | NUR ---
Shift assessment complete. Pt resting in bed, awake, a&o c some underlying int confusion, cooperative c cares. Pt denies pain or any other c/o at this time. INT patent. Tele in place. Pt denies needs. Call light in reach, bed alarm on. Will continue to monitor.
[2019-06-18 23:42] VITALS: BP 151/89; PULSE 72; TEMP 98.3
[2019-06-19 04:18] VITALS: BP 159/88; PULSE 66; TEMP 98.5
--- NOTE | 2019-06-19 04:49 | NUR ---
Pt resting in bed, condition unchanged. Pt has rested well this shift c very few needs. No needs at this time. Call light in reach, bed alarm on.
[2019-06-19 06:24] LABS: BASO # 0.1 (0.0-0.2); BASO % 1.4 % (0.0-2.0); EOS # 0.1 (0.0-0.7); EOS % 2.1 % (0-4.0); GRAN # 3.7 (1.4-6.5); GRAN % 70.6 % (42.2-75.2); HEMATOCRIT 37.4 % (37.0-47.0); HEMOGLOBIN 12.5 g/dl (12.5-16.0); LYMPH # 0.9 (1.2-3.4); LYMPH % 17.4 % (20.0-51.0); MEAN CELL VOLUME 91 fl (80.0-100.0); MEAN CORPUSCULAR HEMOGLOBIN 30 pg (27.0-31.0); MEAN CORPUSCULAR HGB CONC 33 g/dl (33.0-37.0); MEAN PLATELET VOLUME 10.3 fl (7.4-10.4); MONO # 0.4 (0.1-0.6); MONO % 7.9 % (1.7-9.3); PLATELET COUNT 112 K/mm3 (130-400); RED BLOOD COUNT 4.12 M/mm3 (4.10-5.30); REDCELL DISTRIBUTION WIDTH-CV 14.4 % (11.5-14.5)
[2019-06-19 06:38] LABS: CREATININE, serum 0.85 (0.52-1.25); POTASSIUM 3.5 mmol/L (3.4-5.0)
[2019-06-19 08:05] VITALS: BP 159/84; PULSE 70; TEMP 97.6
--- NOTE | 2019-06-19 11:57 | NUR ---
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
[2019-06-19 12:08] VITALS: BP 154/94; PULSE 74; TEMP 98.1
--- NOTE | 2019-06-19 14:44 | NUR ---
TRISH met with the patient to discuss the recommendation for post acute rehab. The pt is refusing post acute rehab and wants to go home with [facility]. Patient states she has been walking to the restroom and down the jansen. TRISH faxed referral to [facility] . TRISH will continue to follow to ensure a safe discharge.
[2019-06-19] MEDS ORDERED: BYSTOLIC5 MG PO (16:15)
[2019-06-19 16:16] VITALS: BP 149/83; PULSE 81; TEMP 96.7
[2019-06-19] MEDS ORDERED: SINEMET 25/101 UDTAB PO ×2 (16:19→16:51)
--- NOTE | 2019-06-19 18:31 | NUR ---
Discharge instructions reveiwed with the patient, insturcted to follow up with PCP/ neurology/ Cardiology as scheduled, discussed medicaiton changes and new meds/ scripts sent to pharmacy for her, IV and tele removed, she is leaving with her son and , I personally escorted them out the door
== END 2019-06-19 18:32 | disposition home health service (06) | DRG 65 ==
LOC: COL.ER 06:26 → MEDICAL 08:31
PROVIDERS: Emergency Medicine; ADMIT Family Medicine
DX: I63.89 Other cerebral infarction (principal); I50.30 Unspecified diastolic (congestive) heart failure; G20 Parkinson's disease; I11.0 Hypertensive heart disease with heart failure; K21.9 Gastro-esophageal reflux disease without esophagitis; I25.10 Atherosclerotic heart disease of native coronary artery without angina pectoris; J44.9 Chronic obstructive pulmonary disease, unspecified; E11.40 Type 2 diabetes mellitus with diabetic neuropathy, unspecified; M06.9 Rheumatoid arthritis, unspecified; M19.90 Unspecified osteoarthritis, unspecified site; G47.33 Obstructive sleep apnea (adult) (pediatric); D69.6 Thrombocytopenia, unspecified; I48.0 Paroxysmal atrial fibrillation; I45.81 Long QT syndrome; R32 Unspecified urinary incontinence; I95.9 Hypotension, unspecified; Z96.659 Presence of unspecified artificial knee joint; R00.1 Bradycardia, unspecified; I35.0 Nonrheumatic aortic (valve) stenosis; Z87.440 Personal history of urinary (tract) infections; Z87.11 Personal history of peptic ulcer disease; Z90.49 Acquired absence of other specified parts of digestive tract; Z93.3 Colostomy status
CPT/HCPCS: 99232-AI; 99239; A9585; G0378; J1815; J7030; Q9967

== ENCOUNTER → 2019-07-27 | Outpatient (CLI) | payer MEDICARE, OTHER ==
[~2019-07-27] MED LIST changes: +BYSTOLIC5 MG PO; +GLUCOPHAGE1000 MG PO; +KLOR-CON 1010 MEQ PO; +LIPITOR 40MG TA40 MG PO; +MIRALAX PA17 GM/Dose PO; +NYAMYC100000 U/G TP; +SINEMET 25/101 UDTAB PO
== END ==
LOC: DIA.ED 11:36
DX: E11.40 Type 2 diabetes mellitus with diabetic neuropathy, unspecified (principal); E78.5 Hyperlipidemia, unspecified; I10 Essential (primary) hypertension; E66.9 Obesity, unspecified
CPT/HCPCS: G0108

== ENCOUNTER 2019-07-28 14:03 | Outpatient (RCR) | payer MEDICARE, OTHER ==
[2019-09-07] MEDS ORDERED: TYLENOL 500MG500 MG PO (13:51)
[2019-09-07] MEDS ORDERED: ACIPHEX20 MG PO (13:52)
[2019-09-07] MEDS ORDERED: ASPIRIN 81M81 MG/TA2 PO (13:52)
[2019-09-07] MEDS ORDERED: BRILINTA90 MG PO (13:53)
[2019-09-07] MEDS ORDERED: LIPITOR 40MG TA40 MG PO (13:53)
[2019-09-07] MEDS ORDERED: CARAFATE S1 GM/10 ML PO (13:56)
[2019-09-07] MEDS ORDERED: SUPER CALCIUM W1 TA2 PO (13:56)
[2019-09-07] MEDS ORDERED: SINEMET 25/101 UDTAB PO (13:58)
[2019-09-07] MEDS ORDERED: CEFACLOR250 MG PO (13:58)
[2019-09-07] MEDS ORDERED: CEFTIN 250250 MG/TAB PO (13:59)
[2019-09-07] MEDS ORDERED: ZYRTEC5 MG PO (13:59)
[2019-09-07] MEDS ORDERED: CRANBERRY250 MG PO (14:00)
[2019-09-07] MEDS ORDERED: FLONASEALLERGY NS (14:00)
[2019-09-07] MEDS ORDERED: FOLIC ACID 11 MG/TA1 PO (14:00)
[2019-09-07] MEDS ORDERED: LASIX 20MG TABL20 MG PO (14:01)
[2019-09-07] MEDS ORDERED: PRINIVIL40 MG PO (14:02)
[2019-09-07] MEDS ORDERED: IMDUR 30MG30 MG/TAB PO (14:02)
[2019-09-07] MEDS ORDERED: PROBIOTIC GOLD1 EACH PO (14:02)
[2019-09-07] MEDS ORDERED: MIRALAX PA17 GM/Dose PO (14:03)
[2019-09-07] MEDS ORDERED: MELATONIN5 M1 SL (14:03)
[2019-09-07] MEDS ORDERED: SINGULAIR 110 MG/TAB PO (14:04)
[2019-09-07] MEDS ORDERED: MYRBETR50MG PO (14:04)
[2019-09-07] MEDS ORDERED: NYAMYC100000 U/G TP (14:05)
[2019-09-07] MEDS ORDERED: NITROSTAT0.4 MG/TAB SL (14:05)
[2019-09-07] MEDS ORDERED: OMEGA-31 SGL PO (14:09)
[2019-09-07] MEDS ORDERED: KLOR-CON SPRIN10 MEQ PO (14:10)
[2019-09-07] MEDS ORDERED: RANEXA 500MG T500 MG PO (14:10)
[2019-09-07] MEDS ORDERED: GLUCOPHAGE500 MG/TAB PO (14:11)
[2019-09-07] MEDS ORDERED: PACERONE100 MG PO (14:12)
[2019-09-07] MEDS ORDERED: PROBIOTIC FORMU1 CAP PO (14:12)
[2019-09-07] MEDS ORDERED: BYSTOLIC5 MG PO (14:12)
[2019-09-07] MEDS ORDERED: VENTOLIN0.09 MG IH (14:13)
== END 2019-10-26 | disposition home or self-care (01) ==
LOC: WSPT
DX: I89.0 Lymphedema, not elsewhere classified (principal)

== ENCOUNTER 2019-09-07 12:27 | Outpatient (CLI) | payer MEDICARE, OTHER ==
[~2019-09-07] VITALS: Ht 154.9 cm; Wt 105.3 kg
[2019-09-07 13:50] LABS: HEMOGLOBIN 14.3 g/dl (12.5-16.0); MEAN CELL VOLUME 93 fl (80.0-100.0); MEAN CORPUSCULAR HEMOGLOBIN 31 pg (27.0-31.0); MEAN CORPUSCULAR HGB CONC 33 g/dl (33.0-37.0); MEAN PLATELET VOLUME 10.4 fl (7.4-10.4); PLATELET COUNT 131 K/mm3 (130-400); RED BLOOD COUNT 4.64 M/mm3 (4.10-5.30); REDCELL DISTRIBUTION WIDTH-CV 14.7 % (11.5-14.5)
[2019-09-07] MEDS ORDERED: TYLENOL 500MG500 MG PO (13:51)
[2019-09-07] MEDS ORDERED: ACIPHEX20 MG PO (13:52)
[2019-09-07] MEDS ORDERED: ASPIRIN 81M81 MG/TA2 PO (13:52)
[2019-09-07 13:53] VITALS: BP 176/106; PULSE 60; TEMP 97.4
[2019-09-07] MEDS ORDERED: LIPITOR 40MG TA40 MG PO (13:53)
[2019-09-07] MEDS ORDERED: BRILINTA90 MG PO (13:53)
[2019-09-07] MEDS ORDERED: CARAFATE S1 GM/10 ML PO (13:56)
[2019-09-07] MEDS ORDERED: SUPER CALCIUM W1 TA2 PO (13:56)
[2019-09-07 13:57] LABS: PROTHROMBIN TIME 11.6 SECONDS (9.7-12.8)
[2019-09-07] MEDS ORDERED: CEFACLOR250 MG PO (13:58)
[2019-09-07] MEDS ORDERED: SINEMET 25/101 UDTAB PO (13:58)
[2019-09-07] MEDS ORDERED: ZYRTEC5 MG PO (13:59)
[2019-09-07] MEDS ORDERED: CEFTIN 250250 MG/TAB PO (13:59)
[2019-09-07] MEDS ORDERED: CRANBERRY250 MG PO (14:00)
[2019-09-07] MEDS ORDERED: FOLIC ACID 11 MG/TA1 PO (14:00)
[2019-09-07] MEDS ORDERED: FLONASEALLERGY NS (14:00)
[2019-09-07] MEDS ORDERED: LASIX 20MG TABL20 MG PO (14:01)
[2019-09-07] MEDS ORDERED: PROBIOTIC GOLD1 EACH PO (14:02)
[2019-09-07] MEDS ORDERED: PRINIVIL40 MG PO (14:02)
[2019-09-07] MEDS ORDERED: IMDUR 30MG30 MG/TAB PO (14:02)
[2019-09-07] MEDS ORDERED: MELATONIN5 M1 SL (14:03)
[2019-09-07] MEDS ORDERED: MIRALAX PA17 GM/Dose PO (14:03)
[2019-09-07 14:04] LABS: CALCIUM 9.9 mg/dL (8.4-10.2); CREATININE, serum 0.85 (0.52-1.25); POTASSIUM 4.6 mmol/L (3.4-5.0)
[2019-09-07] MEDS ORDERED: SINGULAIR 110 MG/TAB PO (14:04)
[2019-09-07] MEDS ORDERED: MYRBETR50MG PO (14:04)
[2019-09-07] MEDS ORDERED: NITROSTAT0.4 MG/TAB SL (14:05)
[2019-09-07] MEDS ORDERED: NYAMYC100000 U/G TP (14:05)
[2019-09-07] MEDS ORDERED: OMEGA-31 SGL PO (14:09)
[2019-09-07] MEDS ORDERED: KLOR-CON SPRIN10 MEQ PO (14:10)
[2019-09-07] MEDS ORDERED: RANEXA 500MG T500 MG PO (14:10)
[2019-09-07] MEDS ORDERED: GLUCOPHAGE500 MG/TAB PO (14:11)
[2019-09-07] MEDS ORDERED: PACERONE100 MG PO (14:12)
[2019-09-07] MEDS ORDERED: PROBIOTIC FORMU1 CAP PO (14:12)
[2019-09-07] MEDS ORDERED: BYSTOLIC5 MG PO (14:12)
[2019-09-07] MEDS ORDERED: VENTOLIN0.09 MG IH (14:13)
--- NOTE | 2019-09-07 14:53 | NUR ---
Report from Raul Mathur.Pt observed awake and alert.
[2019-09-07 14:54] VITALS: BP 147/83; PULSE 61
[2019-09-07 15:10] VITALS: BP 162/92; PULSE 58
[2019-09-07 15:25] VITALS: BP 161/93; PULSE 57
[2019-09-07 15:40] VITALS: BP 181/99; PULSE 62
--- NOTE | 2019-09-07 17:10 | NUR ---
Discharge instructions gien to pt.pt verbalizes understanding.INT removed,catheter tip intact.Pt escorted out via wheelchair.
== END 2019-09-07 17:22 | disposition home or self-care (01) ==
LOC: COL.RAD 12:27
PROVIDERS: Internal Medicine Interventional Cardiology
DX: I63.421 Cerebral infarction due to embolism of right anterior cerebral artery (principal)
CPT/HCPCS: J2704

== ENCOUNTER → 2019-11-14 | Outpatient (CLI) | payer MEDICARE, OTHER ==
[~2019-11-14] MED LIST changes: +CRANBERRY250 MG PO; +GLUCOPHAGE500 MG/TAB PO; +KLOR-CON SPRIN10 MEQ PO; +OMEGA-31 SGL PO; +PACERONE100 MG PO; +PROBIOTIC GOLD1 EACH PO; +SUPER CALCIUM W1 TA2 PO
== END ==
LOC: COL.RAD 10:46
DX: Z45.2 Encounter for adjustment and management of vascular access device (principal); Z95.9 Presence of cardiac and vascular implant and graft, unspecified
CPT/HCPCS: J1644; Q9967

== ENCOUNTER 2019-12-21 02:38 | Emergency (ER) | payer MEDICARE, OTHER ==
[~2019-12-21] VITALS: Ht 154.9 cm; Wt 102.3 kg
[2019-12-21 02:45] VITALS: TEMP 97.9
[2019-12-21 04:58] LABS: BASO # 0.1 (0.0-0.2); BASO % 0.9 % (0.0-2.0); EOS # 0.2 (0.0-0.7); EOS % 1.6 % (0-4.0); GRAN # 7.7 (1.4-6.5); GRAN % 82.7 % (42.2-75.2); HEMATOCRIT 37.7 % (37.0-47.0); HEMOGLOBIN 12.6 g/dl (12.5-16.0); LYMPH # 0.8 (1.2-3.4); LYMPH % 8.4 % (20.0-51.0); MEAN CELL VOLUME 90 fl (80.0-100.0); MEAN CORPUSCULAR HEMOGLOBIN 30 pg (27.0-31.0); MEAN CORPUSCULAR HGB CONC 33 g/dl (33.0-37.0); MEAN PLATELET VOLUME 10.6 fl (7.4-10.4); MONO # 0.5 (0.1-0.6); MONO % 5.8 % (1.7-9.3); PLATELET COUNT 138 K/mm3 (130-400); RED BLOOD COUNT 4.18 M/mm3 (4.10-5.30); REDCELL DISTRIBUTION WIDTH-CV 14.6 % (11.5-14.5)
[2019-12-21 05:02] LABS: PROTHROMBIN TIME 11.6 SECONDS (9.7-12.8)
[2019-12-21 05:41] LABS: ALANINE AMINOTRANSFERASE 15 U/L (9-52); ALBUMIN 3.9 gm/dL (3.5-5.0); ALKALINE PHOSPHATASE 98 U/L (50-136); ANION GAP 12 mmol/L (7-16); AST,SGOT 28 U/L (15-37); BLOOD UREA NITROGEN 21 mg/dL (7-17); CALCIUM 9.3 mg/dL (8.4-10.2); CARBON DIOXIDE 23 mmol/L (22-30); CHLORIDE 102 mmol/L (98-107); CREATININE, serum 0.91 (0.52-1.25); GLUCOSE 212 mg/dL (74-106); POTASSIUM 4.4 mmol/L (3.4-5.0); SODIUM 137 mmol/L (137-145); TOTAL PROTEIN 6.6 gm/dL (6.4-8.2)
[2019-12-21 05:53] LABS: TROPONIN-I < 0.012 ng/mL (0.000-0.035)
[2019-12-21 06:45] VITALS: BP 132/81; PULSE 58
== END 2019-12-21 06:45 | disposition short-term general hospital (02) ==
LOC: COL.ER 02:38
PROVIDERS: Emergency Medicine
DX: S72.401A Unspecified fracture of lower end of right femur, initial encounter for closed fracture (principal); S32.501A Unspecified fracture of right pubis, initial encounter for closed fracture; I10 Essential (primary) hypertension; E11.9 Type 2 diabetes mellitus without complications; E78.5 Hyperlipidemia, unspecified; Z86.73 Personal history of transient ischemic attack (TIA), and cerebral infarction without residual deficits; Z79.82 Long term (current) use of aspirin; Z79.84 Long term (current) use of oral hypoglycemic drugs; Z79.51 Long term (current) use of inhaled steroids; W19.XXXA Unspecified fall, initial encounter; Y92.009 Unspecified place in unspecified non-institutional (private) residence as the place of occurrence of the external cause
CPT/HCPCS: J3010; J7030

== ENCOUNTER → 2020-01-18 | Outpatient (CLI) | payer MEDICARE, OTHER | LOC: COL.RAD 10:39 | DX: S72.91XG Unspecified fracture of right femur, subsequent encounter for closed fracture with delayed healing (principal) ==

== ENCOUNTER → 2020-03-12 | Outpatient (CLI) | payer MEDICARE, OTHER ==
[~2020-03-12] MED LIST changes: -CRANBERRY250 MG PO; +DULCOLAX STOOL100 MG PO; +INVANZ INJ1 G/VIAL IV; +ISOSORBIDE MON120 MG PO; +MILK OF MA1200 MG/5 PO
[2020-03-12 21:27] LABS: COLLECTION METHOD CLEAN CATCH
[2020-03-12 21:50] LABS: BUDDING YEAST Present /hpf; MUCOUS Present /lpf; PH 5 (5-8); SQUAMOUS EPITHELIAL None Seen /hpf; URINE APPEARANCE Cloudy; URINE BACTERIA Occasional /hpf; URINE BILIRUBIN Negative (NEGATIVE); URINE BLOOD 2+ (NEGATIVE); URINE CALCIUM OXALATE CRYSTAL Present /hpf; URINE COLOR Yellow; URINE GLUCOSE Negative (NEGATIVE); URINE KETONE Negative (NEGATIVE); URINE LEUKOCYTE ESTERASE 2+ (NEGATIVE); URINE NITRATE Negative (NEGATIVE); URINE PROTEIN(semi-quant) 1+ (NEGATIVE); URINE RBC >50 /hpf; URINE UROBILINOGEN Negative (NEGATIVE); URINE WBC >50 /hpf
== END ==
LOC: ZLAB.STJ 21:12
PROVIDERS: Internal Medicine
DX: Z01.89 Encounter for other specified special examinations (principal)

== ENCOUNTER → 2020-03-15 | Outpatient (CLI) | payer MEDICARE, OTHER | LOC: ZLAB.STJ 17:45 | DX: E11.9 Type 2 diabetes mellitus without complications (principal); I50.9 Heart failure, unspecified; Z79.01 Long term (current) use of anticoagulants; R29.6 Repeated falls ==

== ENCOUNTER → 2020-03-15 | Outpatient (CLI) | payer MEDICARE, OTHER ==
[2020-03-15 19:10] LABS: COLLECTION METHOD CATHETER
[2020-03-15 19:19] LABS: BUDDING YEAST Present /hpf; MUCOUS Present /lpf; PH 6 (5-8); URINE APPEARANCE Cloudy; URINE BACTERIA Rare /hpf; URINE BILIRUBIN Negative (NEGATIVE); URINE BLOOD 2+ (NEGATIVE); URINE CALCIUM OXALATE CRYSTAL Present /hpf; URINE COLOR Yellow; URINE GLUCOSE Negative (NEGATIVE); URINE KETONE Negative (NEGATIVE); URINE LEUKOCYTE ESTERASE 3+ (NEGATIVE); URINE NITRATE Negative (NEGATIVE); URINE PROTEIN(semi-quant) 1+ (NEGATIVE); URINE RBC 20-50 /hpf; URINE UROBILINOGEN Negative (NEGATIVE); URINE WBC >50 /hpf
== END ==
LOC: ZCOL.LAB 18:22
PROVIDERS: Internal Medicine
DX: Z01.89 Encounter for other specified special examinations (principal)

== ENCOUNTER → 2020-03-26 | Outpatient (CLI) | payer MEDICARE, OTHER | LOC: COL.RAD 12:46 | DX: S72.001G Fracture of unspecified part of neck of right femur, subsequent encounter for closed fracture with delayed healing (principal); Z98.1 Arthrodesis status; Z96.651 Presence of right artificial knee joint ==

== ENCOUNTER → 2020-05-16 | Outpatient (CLI) | payer MEDICARE, OTHER ==
[2020-05-16 11:01] LABS: COLLECTION METHOD CATHETER
[2020-05-16 11:20] LABS: PH 6 (5-8); URINE APPEARANCE Turbid; URINE BACTERIA Rare /hpf; URINE BILIRUBIN Negative (NEGATIVE); URINE BLOOD 2+ (NEGATIVE); URINE COLOR Amber; URINE GLUCOSE Negative (NEGATIVE); URINE KETONE Negative (NEGATIVE); URINE LEUKOCYTE ESTERASE 3+ (NEGATIVE); URINE NITRATE Negative (NEGATIVE); URINE PROTEIN(semi-quant) 1+ (NEGATIVE); URINE RBC 20-50 /hpf; URINE UROBILINOGEN Negative (NEGATIVE)
== END ==
LOC: ZLAB.STJ 10:59
PROVIDERS: Internal Medicine
DX: N39.0 Urinary tract infection, site not specified (principal)

== ENCOUNTER → 2020-05-20 | Outpatient (CLI) | payer MEDICARE, OTHER | LOC: COL.RAD 11:08 | DX: S72.001G Fracture of unspecified part of neck of right femur, subsequent encounter for closed fracture with delayed healing (principal); Z98.890 Other specified postprocedural states; Z96.651 Presence of right artificial knee joint ==

== ENCOUNTER 2020-06-04 06:39 | Emergency (ER) | payer MEDICARE, OTHER ==
[~2020-06-04] VITALS: Ht 154.9 cm; Wt 102.3 kg
[2020-06-04 06:45] VITALS: TEMP 97.9
[2020-06-04 08:21] LABS: BASO # 0.1 (0.0-0.2); BASO % 1.3 % (0.0-2.0); EOS # 0.1 (0.0-0.7); EOS % 0.8 % (0-4.0); GRAN # 5.4 (1.4-6.5); HEMOGLOBIN 11.6 g/dl (12.5-16.0); LYMPH # 0.4 (1.2-3.4); LYMPH % 6.8 % (20.0-51.0); MEAN CELL VOLUME 83 fl (80.0-100.0); MEAN CORPUSCULAR HEMOGLOBIN 27 pg (27.0-31.0); MEAN CORPUSCULAR HGB CONC 33 g/dl (33.0-37.0); MEAN PLATELET VOLUME 9.9 fl (7.4-10.4); MONO # 0.3 (0.1-0.6); MONO % 4.8 % (1.7-9.3); PLATELET COUNT 118 K/mm3 (130-400); RED BLOOD COUNT 4.29 M/mm3 (4.10-5.30); REDCELL DISTRIBUTION WIDTH-CV 16.8 % (11.5-14.5)
[2020-06-04 08:22] LABS: ALBUMIN 3.3 gm/dL (3.5-5.0); CALCIUM 7.6 mg/dL (8.4-10.2); CREATININE, serum 0.55 (0.52-1.25); POTASSIUM 3.1 mmol/L (3.4-5.0); TOTAL PROTEIN 6.1 gm/dL (6.4-8.2)
[2020-06-04 08:34] LABS: HEMATOCRIT 35.6 % (37.0-47.0); TROPONIN-I 0.016 ng/mL (0.000-0.035)
[2020-06-04 08:35] LABS: INR 1.2 (0.8-3.0); PROTHROMBIN TIME 13.8 SECONDS (9.7-12.8)
[2020-06-04 08:40] LABS: ARTERIAL BLD GAS O2 SATURATION 97.1 % (92-100); ARTERIAL BLD GAS TCO2 CT 29.8; ARTERIAL BLOOD GAS BASE EXCESS 4.3 (-2-2); ARTERIAL BLOOD GAS HCO3 28.5 meq/L (22-26); ARTERIAL BLOOD GAS PCO2 40.9 mmHg (35-45); ARTERIAL BLOOD GAS PO2 92.8 mmHg (80-100); ARTERIAL BLOOD GAS pH 7.46 (7.35-7.45)
[2020-06-04 09:21] LABS: COLLECTION METHOD CATHETER
[2020-06-04 09:48] LABS: BUDDING YEAST Present /hpf; MUCOUS Present /lpf; PH 7 (5-8); SQUAMOUS EPITHELIAL None Seen /hpf; URINE APPEARANCE Clear; URINE BACTERIA Rare /hpf; URINE BILIRUBIN Negative (NEGATIVE); URINE BLOOD Negative (NEGATIVE); URINE COLOR Colorless; URINE GLUCOSE Negative (NEGATIVE); URINE KETONE Negative (NEGATIVE); URINE LEUKOCYTE ESTERASE 1+ (NEGATIVE); URINE NITRATE Negative (NEGATIVE); URINE PROTEIN(semi-quant) Negative (NEGATIVE); URINE UROBILINOGEN Negative (NEGATIVE)
[2020-06-04 13:44] VITALS: BP 161/69; PULSE 74
[2020-06-05] MEDS ORDERED: LEVAQUIN 5500 MG/TA1 PO (14:48)
== END 2020-06-04 13:44 | disposition home or self-care (01) ==
LOC: COL.ER 06:39
PROVIDERS: Family Medicine
DX: I50.9 Heart failure, unspecified (principal); G47.33 Obstructive sleep apnea (adult) (pediatric); E87.6 Hypokalemia; I48.91 Unspecified atrial fibrillation; G20 Parkinson's disease; Z79.82 Long term (current) use of aspirin
CPT/HCPCS: J1940

== ENCOUNTER 2020-06-07 19:17 | Emergency (ER) | payer MEDICARE, OTHER ==
[~2020-06-07] VITALS: Ht 154.9 cm; Wt 100.0 kg
[~2020-06-07 19:17] MED LIST changes: -K-DUR20 MEQ PO; -MAG-OX 400400 MG/TAB PO
[2020-06-07 19:29] VITALS: TEMP 98.5
[2020-06-07 20:30] LABS: TROPONIN-I < 0.012 ng/mL (0.000-0.035)
[2020-06-07 21:58] LABS: BASO # 0.1 (0.0-0.2); BASO % 0.8 % (0.0-2.0); EOS # 0.1 (0.0-0.7); EOS % 0.9 % (0-4.0); GRAN % 86.6 % (42.2-75.2); LYMPH # 0.7 (1.2-3.4); LYMPH % 6.8 % (20.0-51.0); MEAN CELL VOLUME 83 fl (80.0-100.0); MEAN CORPUSCULAR HEMOGLOBIN 27 pg (27.0-31.0); MEAN CORPUSCULAR HGB CONC 32 g/dl (33.0-37.0); MEAN PLATELET VOLUME 10.2 fl (7.4-10.4); MONO # 0.5 (0.1-0.6); MONO % 4.5 % (1.7-9.3); PLATELET COUNT 124 K/mm3 (130-400); REDCELL DISTRIBUTION WIDTH-CV 16.1 % (11.5-14.5)
[2020-06-07 22:41] LABS: ALBUMIN 3.4 gm/dL (3.5-5.0); BILIRUBIN,TOTAL 0.9 mg/dL (0.0-1.0); CALCIUM 7.4 mg/dL (8.4-10.2); CREATININE, serum 0.59 (0.52-1.25); TOTAL PROTEIN 6.4 gm/dL (6.4-8.2)
[2020-06-07 22:44] LABS: MAGNESIUM 0.9 mg/dL (1.6-2.3)
[2020-06-07] MEDS ORDERED: K-DUR20 MEQ PO (22:57)
[2020-06-07] MEDS ORDERED: OMNICEF 300MG300 MG PO (22:57)
[2020-06-07] MEDS ORDERED: MAG-OX 400400 MG/TAB PO (22:57)
[2020-06-07 23:05] LABS: HEMATOCRIT 34.2 % (37.0-47.0)
[2020-06-08 00:03] VITALS: BP 143/85; PULSE 66
== END 2020-06-08 00:03 ==
LOC: COL.ER 19:17
PROVIDERS: Emergency Medicine
DX: N39.0 Urinary tract infection, site not specified (principal); E87.6 Hypokalemia; E83.42 Hypomagnesemia; I50.9 Heart failure, unspecified; I48.91 Unspecified atrial fibrillation; I25.10 Atherosclerotic heart disease of native coronary artery without angina pectoris; E11.9 Type 2 diabetes mellitus without complications; J44.9 Chronic obstructive pulmonary disease, unspecified; E78.5 Hyperlipidemia, unspecified; G20 Parkinson's disease; Z86.73 Personal history of transient ischemic attack (TIA), and cerebral infarction without residual deficits; Z88.6 Allergy status to analgesic agent; Z88.4 Allergy status to anesthetic agent; Z79.82 Long term (current) use of aspirin; Z79.84 Long term (current) use of oral hypoglycemic drugs
CPT/HCPCS: J0696; J1940; J3475; J3480

== ENCOUNTER → 2020-06-07 | Outpatient (CLI) | payer MEDICARE, OTHER ==
[~2020-06-07] MED LIST changes: +K-DUR20 MEQ PO; +MAG-OX 400400 MG/TAB PO
[2020-06-07 17:14] LABS: CALCIUM 7.3 mg/dL (8.4-10.2); CREATININE, serum 0.59 (0.52-1.25)
[2020-06-07 17:22] LABS: POTASSIUM 2.7 mmol/L (3.4-5.0)
== END ==
LOC: ZLAB.STJ 16:10
PROVIDERS: Internal Medicine
DX: I50.33 Acute on chronic diastolic (congestive) heart failure (principal)

== ENCOUNTER → 2020-06-17 | Outpatient (CLI) | payer MEDICARE, OTHER ==
[~2020-06-17] MED LIST changes: +K-DUR20 MEQ PO; +MAG-OX 400400 MG/TAB PO
[2020-06-17 12:34] LABS: CALCIUM 8.6 mg/dL (8.4-10.2); CREATININE, serum 0.66 (0.52-1.25); POTASSIUM 4.3 mmol/L (3.4-5.0)
== END ==
LOC: ZLAB.STJ 11:45
PROVIDERS: Internal Medicine
DX: I10 Essential (primary) hypertension (principal)

== ENCOUNTER → 2020-06-21 | Outpatient (CLI) | payer MEDICARE, OTHER ==
[2020-06-21 15:17] LABS: COLLECTION METHOD CATHETER
[2020-06-21 15:33] LABS: PH 7 (5-8); SQUAMOUS EPITHELIAL 0-2 /hpf; URINE APPEARANCE Cloudy; URINE BACTERIA Moderate /hpf; URINE BILIRUBIN Negative (NEGATIVE); URINE BLOOD 2+ (NEGATIVE); URINE COLOR Yellow; URINE GLUCOSE Negative (NEGATIVE); URINE KETONE Negative (NEGATIVE); URINE LEUKOCYTE ESTERASE 3+ (NEGATIVE); URINE NITRATE Positive (NEGATIVE); URINE PROTEIN(semi-quant) Negative (NEGATIVE); URINE UROBILINOGEN Negative (NEGATIVE)
== END ==
LOC: ZLAB.STJ 14:54
PROVIDERS: Urology
DX: N39.0 Urinary tract infection, site not specified (principal)

== ENCOUNTER → 2020-06-25 | Outpatient (CLI) | payer MEDICARE, OTHER | LOC: COL.RAD 10:58 | DX: I71.2 Thoracic aortic aneurysm, without rupture (principal); I51.7 Cardiomegaly; I70.90 Unspecified atherosclerosis | CPT/HCPCS: Q9967 ==

== ENCOUNTER → 2020-07-10 | Outpatient (CLI) | payer MEDICARE, OTHER ==
[2020-07-10 10:46] LABS: CREATININE, serum 0.78 (0.52-1.25)
== END ==
LOC: ZLAB.STJ 10:13
PROVIDERS: Internal Medicine
DX: R79.89 Other specified abnormal findings of blood chemistry (principal)

== ENCOUNTER → 2020-08-01 | Outpatient (CLI) | payer MEDICARE, OTHER ==
[2020-08-01 14:18] LABS: BASO # 0.1 (0.0-0.2); BASO % 1.5 % (0.0-2.0); EOS # 0.2 (0.0-0.7); EOS % 4.2 % (0-4.0); HEMOGLOBIN 10.3 g/dl (12.5-16.0); LYMPH # 0.8 (1.2-3.4); LYMPH % 13.8 % (20.0-51.0); MEAN CELL VOLUME 85 fl (80.0-100.0); MEAN CORPUSCULAR HEMOGLOBIN 27 pg (27.0-31.0); MEAN CORPUSCULAR HGB CONC 32 g/dl (33.0-37.0); MEAN PLATELET VOLUME 11.1 fl (7.4-10.4); MONO # 0.4 (0.1-0.6); MONO % 6.8 % (1.7-9.3); PLATELET COUNT 119 K/mm3 (130-400); REDCELL DISTRIBUTION WIDTH-CV 17.1 % (11.5-14.5)
[2020-08-01 14:19] LABS: HEMATOCRIT 32.2 % (37.0-47.0)
[2020-08-01 14:37] LABS: ALBUMIN 3.3 gm/dL (3.5-5.0); BILIRUBIN,TOTAL 0.6 mg/dL (0.0-1.0); CALCIUM 8.7 mg/dL (8.4-10.2); CHOLESTEROL RISK RATIO 2.9; CREATININE, serum 0.97 (0.52-1.25); POTASSIUM 4.2 mmol/L (3.4-5.0); TOTAL PROTEIN 5.8 gm/dL (6.4-8.2)
== END ==
LOC: ZLAB.STJ 13:56
PROVIDERS: Internal Medicine
DX: I11.0 Hypertensive heart disease with heart failure (principal); I50.32 Chronic diastolic (congestive) heart failure; E78.2 Mixed hyperlipidemia; R80.9 Proteinuria, unspecified

== ENCOUNTER → 2020-10-02 | Outpatient (CLI) | payer MEDICARE, OTHER ==
[2020-10-02 14:51] LABS: COLLECTION METHOD CATHETER
[2020-10-02 15:12] LABS: AMORPHOUS CRYSTAL Present /uL; MUCOUS Present /lpf; PH 8 (5-8); SQUAMOUS EPITHELIAL None Seen /hpf; URINE APPEARANCE Cloudy; URINE BACTERIA Moderate /hpf; URINE BILIRUBIN Negative (NEGATIVE); URINE BLOOD 1+ (NEGATIVE); URINE COLOR Amber; URINE GLUCOSE Negative (NEGATIVE); URINE KETONE Negative (NEGATIVE); URINE LEUKOCYTE ESTERASE 3+ (NEGATIVE); URINE NITRATE Negative (NEGATIVE); URINE PROTEIN(semi-quant) 1+ (NEGATIVE); URINE RBC >50 /hpf; URINE TRIPLE PHOSPHATE CRYSTAL Present /hpf; URINE UROBILINOGEN Negative (NEGATIVE)
== END ==
LOC: ZLAB.STJ 13:28
PROVIDERS: Family Medicine
DX: N39.0 Urinary tract infection, site not specified (principal)

== ENCOUNTER → 2020-10-13 | Outpatient (CLI) | payer MEDICARE, OTHER ==
[2020-10-13 23:27] LABS: COLLECTION METHOD CATHETER
[2020-10-13 23:36] LABS: PH 5 (5-8); SQUAMOUS EPITHELIAL None Seen /hpf; URINE APPEARANCE Hazy; URINE BACTERIA Rare /hpf; URINE BILIRUBIN Negative (NEGATIVE); URINE BLOOD 2+ (NEGATIVE); URINE COLOR Yellow; URINE GLUCOSE Negative (NEGATIVE); URINE KETONE Negative (NEGATIVE); URINE LEUKOCYTE ESTERASE 2+ (NEGATIVE); URINE NITRATE Positive (NEGATIVE); URINE PROTEIN(semi-quant) Negative (NEGATIVE); URINE UROBILINOGEN Negative (NEGATIVE)
== END ==
LOC: ZLAB.STJ 23:20
PROVIDERS: Family Medicine
DX: N39.0 Urinary tract infection, site not specified (principal)

== ENCOUNTER → 2020-10-25 | Outpatient (CLI) | payer MEDICARE, OTHER ==
[2020-10-25 15:45] LABS: CLOSTRIDIUM DIFF A/B NEG; CLOSTRIDIUM DIFF A/B INTERP No C.diff present
== END ==
LOC: ZLAB.STJ 15:06 → COL.LAB 15:06
DX: R19.7 Diarrhea, unspecified (principal)

== ENCOUNTER → 2020-10-29 | Outpatient (CLI) | payer MEDICARE, OTHER ==
[2020-10-29 01:09] LABS: HEMOGLOBIN 13.2 g/dl (12.5-16.0); MEAN CELL VOLUME 86 fl (80.0-100.0); MEAN CORPUSCULAR HEMOGLOBIN 28 pg (27.0-31.0); MEAN CORPUSCULAR HGB CONC 32 g/dl (33.0-37.0); MEAN PLATELET VOLUME 11.4 fl (7.4-10.4); PLATELET COUNT 173 K/mm3 (130-400); RED BLOOD COUNT 4.76 M/mm3 (4.10-5.30); REDCELL DISTRIBUTION WIDTH-CV 14.9 % (11.5-14.5)
[2020-10-29 01:11] LABS: BILIRUBIN,TOTAL 0.6 mg/dL (0.0-1.0); CALCIUM 9.6 mg/dL (8.4-10.2); CREATININE, serum 0.99 (0.52-1.25); POTASSIUM 5.1 mmol/L (3.4-5.0); TOTAL PROTEIN 7.1 gm/dL (6.4-8.2)
== END ==
LOC: ZLAB.STJ 00:47
PROVIDERS: Internal Medicine Nephrology
DX: I50.33 Acute on chronic diastolic (congestive) heart failure (principal); E11.29 Type 2 diabetes mellitus with other diabetic kidney complication

== ENCOUNTER → 2020-12-16 | Outpatient (CLI) | payer MEDICARE, OTHER ==
[2020-12-16 13:03] LABS: COLLECTION METHOD CATHETER
[2020-12-16 13:18] LABS: PH 6 (5-8); SQUAMOUS EPITHELIAL 0-2 /hpf; URINE APPEARANCE Turbid; URINE BACTERIA Many /hpf; URINE BILIRUBIN Negative (NEGATIVE); URINE BLOOD 2+ (NEGATIVE); URINE COLOR Yellow; URINE GLUCOSE 3+ (NEGATIVE); URINE KETONE Negative (NEGATIVE); URINE LEUKOCYTE ESTERASE 3+ (NEGATIVE); URINE NITRATE Negative (NEGATIVE); URINE PROTEIN(semi-quant) 1+ (NEGATIVE); URINE RBC 20-50 /hpf; URINE UROBILINOGEN Negative (NEGATIVE)
== END ==
LOC: ZLAB.STJ 13:00
PROVIDERS: Family Medicine
DX: Z87.448 Personal history of other diseases of urinary system (principal)

== ENCOUNTER → 2020-12-30 | Outpatient (CLI) | payer MEDICARE, OTHER ==
[2020-12-30 16:50] LABS: COLLECTION METHOD CATHETER
[2020-12-30 17:08] LABS: BUDDING YEAST Present /hpf; MUCOUS Present /lpf; PH 6 (5-8); SQUAMOUS EPITHELIAL 0-2 /hpf; URINE APPEARANCE Cloudy; URINE BACTERIA Rare /hpf; URINE BILIRUBIN Negative (NEGATIVE); URINE BLOOD Negative (NEGATIVE); URINE COLOR Yellow; URINE GLUCOSE Negative (NEGATIVE); URINE KETONE Negative (NEGATIVE); URINE LEUKOCYTE ESTERASE 3+ (NEGATIVE); URINE NITRATE Negative (NEGATIVE); URINE PROTEIN(semi-quant) Negative (NEGATIVE); URINE UROBILINOGEN Negative (NEGATIVE)
== END ==
LOC: ZLAB.STJ 15:41
PROVIDERS: Family Medicine
DX: R82.90 Unspecified abnormal findings in urine (principal)